=== PATIENT | male | born 1950 | race African-American/Black ===

== ENCOUNTER 2024-01-07 19:10 | Inpatient (IN) ==
[2024-01-07 20:02] LABS: Basophils # (auto) 0.01 K/uL (0.00-0.20); Basophils % (auto) 0.3 %; Eosinophils # (auto) 0.08 K/uL (0.00-0.50); Eosinophils % (auto) 2.5 %; Hematocrit (blood only) 37.2 % (42.0-52.0); Hemoglobin 11.7 g/dl (14.0-18.0); Immature Granulocytes # (auto) 0.01 K/uL (0.01-0.20); Immature Granulocytes % (auto) 0.3 %; Lymphocytes # (auto) 0.78 K/uL (1.20-3.40); Lymphocytes % (auto) 24.3 %; Mean Corpuscular Hemoglobin 26.8 pg (25.0-34.0); Mean Corpuscular Hgb Conc 31.5 g/dL (32.0-36.0); Mean Corpuscular Volume 85.1 fL (80.0-100.0); Mean Platelet Volume 10.8 fL (9.4-12.4); Monocytes # (auto) 0.44 K/uL (0.11-0.59); Monocytes % (auto) 13.7 %; Neutrophils # (auto) 1.89 K/uL (1.40-6.50); Neutrophils % (auto) 58.9 %; Platelet Count 294 K/uL (130-400); RDW Coefficient of Variation 14.9 % (11.5-14.5); RDW Standard Deviation 46.5 fL (36.4-46.3); Red Blood Count 4.37 M/uL (4.70-6.10); White Blood Count 3.21 K/ul (4.8-10.8)
[2024-01-07 20:24] LABS: Partial Thromboplastin Time 28 Seconds (21-31); Prothrombin Time 10.7 Seconds (9.0-12.0)
[2024-01-07 20:49] LABS: Albumin Globulin Ratio 1.6 (0.9-2); Albumin Level 4.7 gm/dl (3.4-5.0); BUN Creatinine Ratio 14.8 (10-20); Bilirubin,Total 0.5 mg/dl (0.2-1.0); Creatinine Clr Calc Pharmacy 51.6 ml/min; Est GFR (African American) 60.4 ml/min; Est GFR (Non-African American) 52.1 ml/min; Globulin 2.9 gm/dl (2.5-4.0); Potassium 3.9 mmol/L (3.5-5.1); Total Protein 7.6 gm/dl (6.0-8.3)
[2024-01-07 21:02] LABS: Troponin I High Sensitivity 57.1 pg/ml (0-20)
[2024-01-07] MEDS: OPTIRAY 320 125ml IV ONE (21:09)
[2024-01-07 21:52] LABS: Adenovirus PCR Not Detected (NotDetected); Bordetella parapertussis PCR Not Detected (NotDetected); Bordetella pertussis PCR Not Detected (NotDetected); Chlamydia pneumoniae PCR Not Detected (NotDetected); Coronavirus 229E PCR Not Detected (NotDetected); Coronavirus CoV-2 (COVID19)PCR Not Detected (NotDetected); Coronavirus HKU1 PCR Not Detected (NotDetected); Coronavirus NL63 PCR Not Detected (NotDetected); Coronavirus OC43PCR Not Detected (NotDetected); Human Metapneumovirus PCR Not Detected (NotDetected); Influenza A PCR Not Detected (NotDetected); Influenza B PCR Not Detected (NotDetected); Mycoplasma pneumoniae PCR Not Detected (NotDetected); Parainfluenza Virus 1 PCR Not Detected (NotDetected); Parainfluenza Virus 2 PCR Not Detected (NotDetected); Parainfluenza Virus 3 PCR Not Detected (NotDetected); Parainfluenza Virus 4 PCR Not Detected (NotDetected); Respiratory Syncytial VirusPCR Not Detected (NotDetected); Rhinovirus/Enterovirus PCR Not Detected (NotDetected)
--- NOTE | 2024-01-07 22:18 | Emergency Department Note ---
Impression & Plan NSTEMI (non-ST elevated myocardial infarction), ASCVD (arteriosclerotic cardiovascular disease), Abnormal EKG ED Provider Note NAME: SIMA [id number] CASSIA AGE: 73 SEX: M : 1950 ARRIVES VIA: Ambulance INFORMANT: Patient, ED PROVIDER(S): Kayleigh Tabor MD CHIEF COMPLAINT: Chest pain HPI: This is a 73-year-old male presenting for chest pain. Patient notes that he has left/central chest pain that started around 3 PM today. He feels like a pressure sensation in his chest. He reports no nausea or vomiting with this. He is never had this pain before. He notes pain was resolved with 2 nitro and 4 aspirin. He notes that he still has pain at this time however. He notes no shortness of breath, fevers, nausea, vomiting or diarrhea. ROS: See above HPI for pertinent positives & negatives. A total of 10 systems reviewed and were otherwise negative. PAST MEDICAL HISTORY: See Below PAST SURGICAL HISTORY: See Below FAMILY HISTORY: See Below SOCIAL HISTORY: See Below HOME MEDICATIONS: See Below ALLERGIES: See Below VITALS: See Below PHYSICAL EXAMINATION: General: resting comfortably in no acute distress Head: Normocephalic and atraumatic Eyes: Normal inspection, extraocular muscles intact Ear, nose, throat: Normal external exam Neck: Normal range of motion Respiratory: lungs clear to auscultation bilaterally Cardiovascular: Regular rate/rhythm, no murmur GI: soft, nontender, no guarding or rebound Extremities: nontender, moves all extremities Neuro: The patient awake and alert, appropriately conversive, no focal deficits, symmetric faces Skin: Warm, dry, and intact MEDICAL DECISION MAKING: This is a 73-year-old male presenting for chest pain concern for. ACS versus PE. PE is less likely based on patient's current vital signs no hypoxia or tachycardia. Otherwise low concern for dissection clinically. -ECG independently interpreted by me with normal sinus rhythm, rate of 84, normal axis, significant DC prolongation, first-degree AV block, right bundle branch block, normal QTc, no ST segment elevations consistent with STEMI criteria -Chest Xray independently interpreted by me showing no pneumothorax, focal opacity, or pleural effusions. -Based on nursing triage note, there was concern for hypoxia upon EMS arrival. Will do CTA to rule out other sources of chest pain suggest PE however less likely currently at this time as patient is on room air -CT is ultimately unrevealing of pulmonary embolism or dissection. Does have coronary artery calcification. -Patient troponin is elevated at 57+ today. This concerning for cardiac etiology. Will admit for further workup at this time. Discussed with Dr. Quispe, hospitalist service. Differential diagnosis: ACS, PE, pericardial effusion, dissection ER treatment provided: See below Diagnostics interpreted by me: ECG: See above Cardiac Monitoring: An order was placed for continuous cardiac monitoring. The monitor shows a rate of 72 with sinus rhythm. Laboratory studies: As stated above and show below. Imaging studies: See below. Past Med/Surg History Problem List (Updated 01/08/24 @ 12:45 by Kayleigh Tabor MD) Mobitz (type) I (Wenckebach's) atrioventricular block Abnormal EKG (Acute) Dyslipidemia, goal LDL below 70 HTN, goal below 130/80 ASCVD (arteriosclerotic cardiovascular disease) (Acute) Left chest pressure NSTEMI (non-ST elevated myocardial infarction) (Acute) Medical History Diabetes mellitus, type 2 Social History Smoking Status: Never smoker Do You Dip or Chew Tobacco: No; Hx Alcohol Use: No Hx Substance Use: No Preferred Language: Senegalese Communication Ability: Effective Station Usher Required: No Beliefs That Will Affect Care: None Current Living Situation: Other Current Living Situation Comment: [facility] Other Information That Helps Us Care for You: No Feels Safe at Home: Yes Safety Concerns: Feels Safe At This Time Assistive Devices: Glasses Allergies Allergies Allergy/AdvReac Type Severity Reaction Status Date / Time metoprolol [From Lopressor] AdvReac Intermediate 2 AVB Verified 01/08/24 06:37 SKIP Inhibitors AdvReac Unknown Verified 01/07/24 23:04 Home Meds Home Medications Medication Instructions Recorded Confirmed acetaminophen 500 mg tablet 1,000 mg PO BID PRN Pain 01/07/24 01/07/24 (Tylenol Extra Strength) albuterol sulfate 90 mcg/actuation 2 puff inhalation QID PRN 01/07/24 01/07/24 aerosol inhaler Shortness Of Breath amlodipine 10 mg tablet 10 mg PO DAILY 01/07/24 01/07/24 ammonium lactate 12 % lotion 1 applic topical DAILY 01/07/24 01/07/24 aspirin 81 mg tablet,delayed 81 mg PO DAILY 01/07/24 01/07/24 release atorvastatin 80 mg tablet 80 mg PO HS 01/07/24 01/07/24 chlorthalidone 25 mg tablet 25 mg PO DAILY 01/07/24 01/07/24 cyanocobalamin (vitamin B-12) 1,000 mcg IM .MONTH 01/07/24 01/07/24 1,000 mcg/mL injection solution docusate sodium 100 mg capsule 100 mg PO BID 01/07/24 01/07/24 duloxetine 60 mg capsule,delayed 60 mg PO HS 01/07/24 01/07/24 release hydroxychloroquine 200 mg tablet 200 mg PO BID 01/07/24 01/07/24 (Plaquenil) isosorbide dinitrate 30 mg tablet 30 mg PO BID 01/07/24 01/07/24 metformin 500 mg tablet 500 mg PO BID 01/07/24 01/07/24 omeprazole 20 mg capsule,delayed 20 mg PO DAILY 01/07/24 01/07/24 release tamsulosin 0.4 mg capsule 0.4 mg PO HS 01/07/24 01/07/24 Results & Data (ED) Vital Signs Vital Signs - 24 hr 01/07/24 19:13 01/07/24 19:13 01/07/24 19:13 Temperature 36.7 C Temperature Source Oral Pulse Rate 84 Pulse Rate from SpO2 Sensor Respiratory Rate 18 18 Respiratory Effort / Characteristics Non-Labored Respiratory Depth Normal Normal Blood Pressure 133/80 Blood Pressure Mean 97 Pulse Oximetry 97 99 99 Oxygen Delivery Method Room Air Room Air Room Air Oxygen Flow Rate 0 Sepsis Recent Fever Within 48 Hours No Sepsis New/Unexplained Change in Mental Status No Sepsis Action Taken by Nursing No Action Required 01/07/24 19:16 01/07/24 19:18 01/07/24 19:19 Temperature Temperature Source Pulse Rate 84 83 Pulse Rate from SpO2 Sensor 84 Respiratory Rate 17 Respiratory Effort / Characteristics Respiratory Depth Blood Pressure 133/80 Blood Pressure Mean 96 Pulse Oximetry 97 Oxygen Delivery Method Oxygen Flow Rate Sepsis Recent Fever Within 48 Hours Sepsis New/Unexplained Change in Mental Status Sepsis Action Taken by Nursing 01/07/24 19:27 01/07/24 19:30 01/07/24 19:30 Temperature Temperature Source Pulse Rate 82 Pulse Rate from SpO2 Sensor 83 Respiratory Rate 15 Respiratory Effort / Characteristics Respiratory Depth Blood Pressure 135/78 135/78 Blood Pressure Mean 101 101 Pulse Oximetry 97 Oxygen Delivery Method Oxygen Flow Rate Sepsis Recent Fever Within 48 Hours Sepsis New/Unexplained Change in Mental Status Sepsis Action Taken by Nursing 01/07/24 19:31 01/07/24 19:48 01/07/24 20:06 Temperature Temperature Source Pulse Rate 92 H 82 Pulse Rate from SpO2 Sensor 91 H 82 Respiratory Rate 20 14 Respiratory Effort / Characteristics Respiratory Depth Blood Pressure Blood Pressure Mean Pulse Oximetry 99 94 97 Oxygen Delivery Method Room Air Room Air Room Air Oxygen Flow Rate Sepsis Recent Fever Within 48 Hours Sepsis New/Unexplained Change in Mental Status Sepsis Action Taken by Nursing 01/07/24 20:27 01/07/24 20:30 01/07/24 21:26 Temperature Temperature Source Pulse Rate 79 Pulse Rate from SpO2 Sensor 80 Respiratory Rate 17 Respiratory Effort / Characteristics Respiratory Depth Blood Pressure 137/81 156/74 H Blood Pressure Mean 104 101 Pulse Oximetry 97 Oxygen Delivery Method Room Air Oxygen Flow Rate Sepsis Recent Fever Within 48 Hours Sepsis New/Unexplained Change in Mental Status Sepsis Action Taken by Nursing 01/07/24 21:30 01/07/24 21:30 01/07/24 21:30 Temperature Temperature Source Pulse Rate Pulse Rate from SpO2 Sensor Respiratory Rate Respiratory Effort / Characteristics Respiratory Depth Blood Pressure 159/79 H 159/79 H 159/79 H Blood Pressure Mean 101 101 101 Pulse Oximetry Oxygen Delivery Method Oxygen Flow Rate Sepsis Recent Fever Within 48 Hours Sepsis New/Unexplained Change in Mental Status Sepsis Action Taken by Nursing 01/07/24 21:30 01/07/24 21:30 01/07/24 21:45 Temperature Temperature Source Pulse Rate 78 79 Pulse Rate from SpO2 Sensor 78 79 Respiratory Rate 15 17 Respiratory Effort / Characteristics Respiratory Depth Blood Pressure 159/79 H Blood Pressure Mean 101 Pulse Oximetry 98 98 Oxygen Delivery Method Room Air Oxygen Flow Rate Sepsis Recent Fever Within 48 Hours Sepsis New/Unexplained Change in Mental Status Sepsis Action Taken by Nursing 01/07/24 22:00 01/07/24 22:30 01/07/24 22:30 Temperature Temperature Source Pulse Rate Pulse Rate from SpO2 Sensor Respiratory Rate Respiratory Effort / Characteristics Respiratory Depth Blood Pressure 157/76 H 150/75 H 150/75 H Blood Pressure Mean 92 113 113 Pulse Oximetry Oxygen Delivery Method Oxygen Flow Rate Sepsis Recent Fever Within 48 Hours Sepsis New/Unexplained Change in Mental Status Sepsis Action Taken by Nursing 01/07/24 22:30 Temperature Temperature Source Pulse Rate 77 Pulse Rate from SpO2 Sensor 77 Respiratory Rate 14 Respiratory Effort / Characteristics Respiratory Depth Blood Pressure Blood Pressure Mean Pulse Oximetry 96 Oxygen Delivery Method Oxygen Flow Rate Sepsis Recent Fever Within 48 Hours Sepsis New/Unexplained Change in Mental Status Sepsis Action Taken by Nursing Laboratory Data 01/08/24 05:25 01/08/24 05:25 Lab Results 01/07/24 01/07/24 Range/Units 19:54 20:40 WBC 3.21 L (4.8-10.8) K/ul RBC 4.37 L (4.70-6.10) M/uL Hgb 11.7 L (14.0-18.0) g/dl Hct 37.2 L (42.0-52.0) % MCV 85.1 (80.0-100.0) fL MCH 26.8 (25.0-34.0) pg MCHC 31.5 L (32.0-36.0) g/dL RDW Std Deviation 46.5 H (36.4-46.3) fL RDW Coeff of Cecilio 14.9 H (11.5-14.5) % Plt Count 294 (130-400) K/uL MPV 10.8 (9.4-12.4) fL Immature Gran % (Auto) 0.3 % Neut % (Auto) 58.9 % Lymph % (Auto) 24.3 % [place] % (Auto) 13.7 % Eos % (Auto) 2.5 % Baso % (Auto) 0.3 % Neut # (Auto) 1.89 (1.40-6.50) K/uL Lymph # (Auto) 0.78 L (1.20-3.40) K/uL [place] # (Auto) 0.44 (0.11-0.59) K/uL Eos # (Auto) 0.08 (0.00-0.50) K/uL Baso # (Auto) 0.01 (0.00-0.20) K/uL Immature Gran # (Auto) 0.01 (0.01-0.20) K/uL PT 10.7 (9.0-12.0) Seconds INR 1.0 (0.9-1.1) APTT 28 (21-31) Seconds PTT Ratio 1.0 Sodium 134 L (136-145) mmol/L Potassium 3.9 (3.5-5.1) mmol/L Chloride 98 (98-107) mmol/L Carbon Dioxide 28 (21-32) mmol/L Anion Gap 8 (3-11) BUN 20 (6-23) mg/dl Creatinine 1.35 (0.6-1.4) mg/dl Est Cr Clr Drug Dosing 51.6 ml/min Est GFR ( Amer) 60.4 ml/min Est GFR (Non-Af Amer) 52.1 ml/min BUN/Creatinine Ratio 14.8 (10-20) Glucose 81 (70-99(Fasting)) mg/dl Calcium 10.0 (8.6-10.3) mg/dl Total Bilirubin 0.5 (0.2-1.0) mg/dl AST 30 (13-39) U/L ALT 19 (7-52) U/L Alkaline Phosphatase 55 (34-104) U/L Troponin I High Sens 57.1 H* (0-20) pg/ml Total Protein 7.6 (6.0-8.3) gm/dl Albumin 4.7 (3.4-5.0) gm/dl Globulin 2.9 (2.5-4.0) gm/dl Albumin/Globulin Ratio 1.6 (0.9-2) Lipase 102 H (11-82) U/L Adenovirus (PCR) Not Detected (NotDetected) B. pertussis DNA (PCR) Not Detected (NotDetected) B.parapertussis DNA PCR Not Detected (NotDetected) C. pneumoniae DNA (PCR) Not Detected (NotDetected) Coronavirus OC43 (PCR) Not Detected (NotDetected) Coronavirus HKU1 (PCR) Not Detected (NotDetected) Coronavirus 229E (PCR) Not Detected (NotDetected) SARS-CoV-2 (PCR) Not Detected (NotDetected) Coronavirus NL63 (PCR) Not Detected (NotDetected) Human Metapneumovir PCR Not Detected (NotDetected) Influenza Type A (PCR) Not Detected (NotDetected) Influenza Type B (PCR) Not Detected (NotDetected) M. pneumoniae (PCR) Not Detected (NotDetected) Parainfluenza 1 (PCR) Not Detected (NotDetected) Parainfluenza 2 (PCR) Not Detected (NotDetected) Parainfluenza 3 (PCR) Not Detected (NotDetected) Parainfluenza 4 (PCR) Not Detected (NotDetected) RSV (PCR) Not Detected (NotDetected) Entero/Rhino (PCR) Not Detected (NotDetected) Administered Medications Amlodipine Besylate (Amlodipine Besylate 5 Mg Tab) 10 mg PO DAILY [facility] Stop: 02/07/24 08:59 Last Admin: 01/08/24 08:26 Dose: 10 mg Documented By: LESTER Aspirin (Aspirin 81 Mg Ectab) 81 mg PO DAILY [facility] Stop: 02/07/24 08:59 Last Admin: 01/08/24 08:27 Dose: 81 mg Documented By: LESTER Docusate Sodium (Docusate Sodium 100 Mg Cap) 100 mg PO BID [facility] Stop: 02/07/24 08:59 Last Admin: 01/08/24 08:27 Dose: 100 mg Documented By: LESTER Duloxetine HCl (Duloxetine Hcl 60 Mg Cap) 60 mg PO QAM [facility] Stop: 02/07/24 08:59 Last Admin: 01/08/24 08:28 Dose: 60 mg Documented By: LESTER Hydroxychloroquine Sulfate (Hydroxychloroquine Sulfate 200 Mg Tab) 200 mg PO BID [facility] Stop: 02/07/24 08:59 Last Admin: 01/08/24 08:29 Dose: 200 mg Documented By: LESTER Isosorbide Dinitrate (Isosorbide Dinitrate 20 Mg Tab) 30 mg PO BID@0700,1200 [facility] Stop: 02/07/24 06:59 Last Admin: 01/08/24 08:29 Dose: 30 mg Documented By: LESTER Pantoprazole Sodium (Pantoprazole 40 Mg Tab) 40 mg PO DAILY [facility] Stop: 02/07/24 08:59 Last Admin: 01/08/24 08:30 Dose: 40 mg Documented By: LESTER Discontinued Medications Clopidogrel Bisulfate (Clopidogrel Bisulfate 300 Mg Tab) Confirm Administered Dose 600 mg .ROUTE .STK-MED ONE Stop: 01/08/24 11:43 Last Admin: 01/08/24 12:28 Dose: Not Given Documented By: LESTER Fentanyl Citrate (Fentanyl Citrate Pf 100 Mcg/2 Ml Vial) Confirm Administered Dose 100 mcg .ROUTE .STK-MED ONE Stop: 01/08/24 09:45 Last Increment: 01/08/24 11:51 Dose: 12.5 mcg Documented By: YOHANNES Heparin Sodium (Porcine) (Heparin (Porcine) 1000 Unit/Ml 10 Ml (Solar Manager Use Only)) Confirm Administered Dose 10,000 units .ROUTE .STK-MED ONE Stop: 01/08/24 09:44 Last Admin: 01/08/24 11:47 Dose: 7,500 units Documented By: YOHANNES Heparin Sodium/Dextrose (Heparin Iv Adult Wt-Based Standard *No* Initial Bolus Protocol) 1 each IV ONE STA; Protocol Stop: 01/07/24 22:50 Last Admin: 01/08/24 00:38 Dose: 1 each Documented By: JERSON Heparin Sodium/Sodium Chloride (Heparin In Nss Infusion 1000 Unit/500 Ml (2 U/Ml) Bag) Confirm Administered Dose 3,000 units IV .STK-MED ONE Stop: 01/08/24 09:45 Last Admin: 01/08/24 10:48 Dose: 3,000 units Documented By: FIOR Lactated Ringer's (Lr) 1,000 mls @ 75 mls/hr IV .[id number] ONE Stop: 01/08/24 11:44 Last Infusion: 01/08/24 09:51 Dose: 0 mls/hr Documented By: Admin: 01/07/24 22:52 Dose: 75 mls/hr Documented By: SATYA Heparin Sodium/Dextrose (Heparin Sodium/Dextrose) 25,000 units in 500 mls @ 25 mls/hr IV .Q20H KATHYA; Protocol Stop: 02/06/24 23:14 Last Titration: 01/08/24 12:30 Dose: Infused Documented By: LESTER Co-signed By: ROCK Titration: 01/08/24 09:50 Dose: 0 units/hr, 0 mls/hr Documented By: LESTER Co-signed By: ROCK Titration: 01/08/24 07:06 Dose: 1,250 units/hr, 25 mls/hr Documented By: ROCK Co-signed By: SELVIN Titration: 01/08/24 06:34 Dose: 1,250 units/hr, 25 mls/hr Documented By: SELVIN Co-signed By: ELLIS Admin: 01/08/24 00:37 Dose: 1,300 units/hr, 26 mls/hr Documented By: PAH Co-signed By: CHRIS Magnesium Sulfate/Dextrose (Magnesium Sulfate / D5w) 1 gm in 100 mls @ 50 mls/hr IV Q2H KATH[facility] Stop: 01/08/24 04:14 Last Infusion: 01/08/24 04:12 Dose: Infused Documented By: Admin: 01/08/24 02:12 Dose: 50 mls/hr Documented By: Infusion: 01/08/24 02:12 Dose: Infused Documented By: Admin: 01/08/24 00:54 Dose: 50 mls/hr Documented By: SELVIN Insulin Aspart (Insulin Aspart Per Unit Charge) 0 units SC Q6 KATH[facility] Stop: 02/07/24 00:00 Last Admin: 01/08/24 06:29 Dose: Not Given Documented By: SELVIN Co-signed By: ELLIS Admin: 01/08/24 00:41 Dose: Not Given Documented By: SELVIN Co-signed By: ELLIS Ioversol (Optiray 320 125ml) 118 ml IV ONCE ONE Stop: 01/07/24 21:10 Last Admin: 01/07/24 21:09 Dose: 118 ml Documented By: CINDY Ioversol (Optiray 350) Confirm Administered Dose 1 ml .ROUTE .STK-MED ONE Stop: 01/08/24 09:45 Last Admin: 01/08/24 11:51 Dose: 140 ml Documented By: FIOR Metoprolol Succinate (Metoprolol Succ 25mg Ext Rel Tab) 25 mg PO QAM KATH[facility] Stop: 02/07/24 00:09 Last Admin: 01/08/24 00:54 Dose: 25 mg Documented By: SELIVN Midazolam HCl (Midazolam Hcl 1 Mg/Ml 2ml Vial) Confirm Administered Dose 2 mg .ROUTE .STK-MED ONE Stop: 01/08/24 09:44 Last Increment: 01/08/24 11:48 Dose: 1 mg Documented By: YOHANNES Miscellaneous Information (Patient's Allergy Info Needs Entered) 1 each N/A NOW STA Stop: 01/07/24 22:28 Last Admin: 01/07/24 23:03 Dose: 1 each Documented By: SATYA Nicardipine HCl (Nicardipine Hcl Inj 2.5 Mg/Ml 10 Ml Amp) Confirm Administered Dose 25 mg .ROUTE .STK-MED ONE Stop: 01/08/24 09:45 Last Admin: 01/08/24 10:48 Dose: 25 mg Documented By: FIOR Nitroglycerin (Nitroglycerin Sl 0.4 Mg/Tab Tab) 0.4 mg SL NOW STA Stop: 01/07/24 22:49 Last Admin: 01/08/24 00:09 Dose: 0.4 mg Documented By: SELVIN Nitroglycerin/Dextrose (Nitroglycerin/D5w 100mcg/Ml 20ml Syr) Confirm Administered Dose 2,000 mcg .ROUTE .STK-MED ONE Stop: 01/08/24 09:45 Last Admin: 01/08/24 11:52 Dose: 2,000 mcg Documented By: ANISH Imaging Data Radiologist's Impression: Chest X-Ray 01/07/24 19:19 XR chest 1V portable HISTORY: Chest pain, nonspecific COMPARISON: None. FINDINGS: The lungs are clear. Cardiac silhouette is normal in size. No pleural effusions. No pneumothorax. IMPRESSION: No acute process. ACT 112: Negative or not required by law. Electronically signed by: Osmar Hooks M.D. 01/08/2024 7:32 AM Discharge Plan Visit Data Chief Complaint: Cardiac Assessment Stated Complaint: EKG Changes, Chest Pain, SOB ED Provider: Kayleigh Tabor Discharge Problem: NSTEMI (non-ST elevated myocardial infarction), ASCVD (arteriosclerotic cardiovascular disease), Abnormal EKG Patient Disposition: Admitted As Inpatient Discharge Instructions Interventions: ED Discharge Assessment Last Done: 01/07/24 23:20
--- NOTE | 2024-01-07 22:49 | History & Physical Report ---
Date of Service January 07, 2024 Assessment & Plan (1) NSTEMI (non-ST elevated myocardial infarction): Plan: NSTEMI History CAD status post stent hx PVD as per records hypertension, slightly elevated hyperlipidemia, on statin Rx COPD, at baseline DM2 on oral medications, unknown control SLE on hydroxychloroquine Rx chronic anemia, hemoglobin close to baseline past tobacco abuse Admit to PCU Continue patient's home aspirin, statin, nitro Rx initiate low-dose beta-barb IV heparin TTE, cardiology consult re: NSTEMI N.p.o. after midnight in anticipation of ischemic workup ISS BG goal 1 10-1 40 Check lipid profile and hemoglobin A1c DVT prophylaxis. Heparin Full code Text document was generated using [employer] voice recognition software. It may contain grammatical or spelling errors. Kindly contact undersigned for clarification of any documentation item in question. ADDENDUM: (01/07, 230 AM) Notified by LOCATE TECHNICIAN of patient bradycardia, heart rate 50s. Second-degree AV block on the monitor. Patient asymptomatic as per RN. Hold beta-barb for now. History of Present Illness Chief Complaint: Chest pain Primary Care Provider: ABHIJIT Silva History obtained from patient and records. Medical history significant for CAD status post stent, PVD, hypertension, h yperlipidemia, COPD, DM2 on oral medications, SLE, chronic anemia (baseline hemoglobin of 12), BPH, latent TB as per records, past tobacco abuse. Patient experienced pressure-like left-sided chest pain this afternoon while lying down in bed. Some shortness of breath. No cough symptoms. Similar to heart attack about 15 years ago which led to stent placement at the hospital in [place], [place]. Patient compliant with home medications. Discomfort relieved by aspirin and nitroglycerin administration at correctional facility. 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 Allergies Allergy/AdvReac Type Severity Reaction Status Date / Time metoprolol [From Lopressor] AdvReac Intermediate 2 AVB Verified 01/08/24 06:37 SKIP Inhibitors AdvReac Unknown Verified 01/07/24 23:04 Home Medications Medication Instructions Recorded Confirmed Type acetaminophen 500 mg tablet 1,000 mg PO BID PRN Pain 01/07/24 01/07/24 History (Tylenol Extra Strength) albuterol sulfate 90 mcg/actuation 2 puff inhalation QID PRN 01/07/24 01/07/24 History aerosol inhaler Shortness Of Breath amlodipine 10 mg tablet 10 mg PO DAILY 01/07/24 01/07/24 History ammonium lactate 12 % lotion 1 applic topical DAILY 01/07/24 01/07/24 History aspirin 81 mg tablet,delayed 81 mg PO DAILY 01/07/24 01/07/24 History release atorvastatin 80 mg tablet 80 mg PO HS 01/07/24 01/07/24 History chlorthalidone 25 mg tablet 25 mg PO DAILY 01/07/24 01/07/24 History cyanocobalamin (vitamin B-12) 1,000 mcg IM .MONTH 01/07/24 01/07/24 History 1,000 mcg/mL injection solution docusate sodium 100 mg capsule 100 mg PO BID 01/07/24 01/07/24 History duloxetine 60 mg capsule,delayed 60 mg PO HS 01/07/24 01/07/24 History release hydroxychloroquine 200 mg tablet 200 mg PO BID 01/07/24 01/07/24 History (Plaquenil) isosorbide dinitrate 30 mg tablet 30 mg PO BID 01/07/24 01/07/24 History metformin 500 mg tablet 500 mg PO BID 01/07/24 01/07/24 History omeprazole 20 mg capsule,delayed 20 mg PO DAILY 01/07/24 01/07/24 History release tamsulosin 0.4 mg capsule 0.4 mg PO HS 01/07/24 01/07/24 History Past Med/Surg History Problem List Mobitz (type) I (Wenckebach's) atrioventricular block Abnormal EKG Dyslipidemia, goal LDL below 70 HTN, goal below 130/80 ASCVD (arteriosclerotic cardiovascular disease) Left chest pressure NSTEMI (non-ST elevated myocardial infarction) Medical History Diabetes mellitus, type 2 Social History Smoking Status: Never smoker Do You Dip or Chew Tobacco: No; Hx Alcohol Use: No Hx Substance Use: No Preferred Language: German Communication Ability: Effective Chassis Driver Required: No Beliefs That Will Affect Care: None Current Living Situation: Other Current Living Situation Comment: [facility]IL[facility] Other Information That Helps Us Care for You: No Feels Safe at Home: Yes Safety Concerns: Feels Safe At This Time Assistive Devices: Glasses Review of Systems Review of Systems: As per HPI, all other systems reviewed and negative Physical Exam Physical Exam: GENERAL: Comfortable, pleasant, no respiratory distress SKIN: Normal color, warm HEENT: [place] palpebral conjunctivae, no ptosis, dry buccal mucosa NECK : Supple, no tenderness CHEST : CTA, no tenderness HEART : RRR, systolic murmur ABDOMEN: Some distention, nontender EXTREMITIES : No LE swelling/tenderness, no other conspicuous deformities noted NEUROLOGIC : Coherent, no facial asymmetry, no other gross focality Results & Data Results & Data Vital Signs (Past 12 Hours) Vital Signs Temp Pulse Resp BP Pulse Ox O2 Del Method O2 Flow Rate 01/07/24 22:30 77 14 96 01/07/24 22:30 150/75 H 01/07/24 22:30 150/75 H 01/07/24 22:00 157/76 H 01/07/24 21:45 79 17 98 Room Air 01/07/24 21:30 78 15 98 01/07/24 21:30 159/79 H 01/07/24 21:30 159/79 H 01/07/24 21:30 159/79 H 01/07/24 21:30 159/79 H 01/07/24 21:26 156/74 H 01/07/24 20:30 137/81 01/07/24 20:27 79 17 97 Room Air 01/07/24 20:06 82 14 97 Room Air 01/07/24 19:48 92 H 20 94 Room Air 01/07/24 19:31 99 Room Air 01/07/24 19:30 135/78 01/07/24 19:30 135/78 01/07/24 19:27 82 15 97 01/07/24 19:19 133/80 01/07/24 19:18 83 17 97 01/07/24 19:16 84 01/07/24 19:13 18 99 Room Air 01/07/24 19:13 99 Room Air 0 01/07/24 19:13 36.7 C 84 18 133/80 97 Room Air Laboratory Results Laboratory Results WBC 3.21 K/ul (4.8-10.8) L 01/07/24 19:54 RBC 4.37 M/uL (4.70-6.10) L 01/07/24 19:54 Hgb 11.7 g/dl (14.0-18.0) L 01/07/24 19:54 Hct 37.2 % (42.0-52.0) L 01/07/24 19:54 MCV 85.1 fL (80.0-100.0) 01/07/24 19:54 MCH 26.8 pg (25.0-34.0) 01/07/24 19:54 MCHC 31.5 g/dL (32.0-36.0) L 01/07/24 19:54 RDW Std Deviation 46.5 fL (36.4-46.3) H 01/07/24 19:54 RDW Coeff of Cecilio 14.9 % (11.5-14.5) H 01/07/24 19:54 Plt Count 294 K/uL (130-400) 01/07/24 19:54 MPV 10.8 fL (9.4-12.4) 01/07/24 19:54 Immature Gran % (Auto) 0.3 % 01/07/24 19:54 Neut % (Auto) 58.9 % 01/07/24 19:54 Lymph % (Auto) 24.3 % 01/07/24 19:54 [place] % (Auto) 13.7 % 01/07/24 19:54 Eos % (Auto) 2.5 % 01/07/24 19:54 Baso % (Auto) 0.3 % 01/07/24 19:54 Neut # (Auto) 1.89 K/uL (1.40-6.50) 01/07/24 19:54 Lymph # (Auto) 0.78 K/uL (1.20-3.40) L 01/07/24 19:54 [place] # (Auto) 0.44 K/uL (0.11-0.59) 01/07/24 19:54 Eos # (Auto) 0.08 K/uL (0.00-0.50) 01/07/24 19:54 Baso # (Auto) 0.01 K/uL (0.00-0.20) 01/07/24 19:54 Immature Gran # (Auto) 0.01 K/uL (0.01-0.20) 01/07/24 19:54 PT 10.7 Seconds (9.0-12.0) 01/07/24 19:54 INR 1.0 (0.9-1.1) 01/07/24 19:54 APTT 28 Seconds (21-31) 01/07/24 19:54 PTT Ratio 1.0 01/07/24 19:54 Sodium 134 mmol/L (136-145) L 01/07/24 19:54 Potassium 3.9 mmol/L (3.5-5.1) 01/07/24 19:54 Chloride 98 mmol/L (98-107) 01/07/24 19:54 Carbon Dioxide 28 mmol/L (21-32) 01/07/24 19:54 Anion Gap 8 (3-11) 01/07/24 19:54 BUN 20 mg/dl (6-23) 01/07/24 19:54 Creatinine 1.35 mg/dl (0.6-1.4) 01/07/24 19:54 Est Cr Clr Drug Dosing 51.6 ml/min 01/07/24 19:54 Est GFR ( Amer) 60.4 ml/min 01/07/24 19:54 Est GFR (Non-Af Amer) 52.1 ml/min 01/07/24 19:54 BUN/Creatinine Ratio 14.8 (10-20) 01/07/24 19:54 Glucose 81 mg/dl (70-99(Fasting)) 01/07/24 19:54 Calcium 10.0 mg/dl (8.6-10.3) 01/07/24 19:54 Total Bilirubin 0.5 mg/dl (0.2-1.0) 01/07/24 19:54 AST 30 U/L (13-39) 01/07/24 19:54 ALT 19 U/L (7-52) 01/07/24 19:54 Alkaline Phosphatase 55 U/L (34-104) 01/07/24 19:54 Troponin I High Sens 57.1 pg/ml (0-20) H* 01/07/24 19:54 Total Protein 7.6 gm/dl (6.0-8.3) 01/07/24 19:54 Albumin 4.7 gm/dl (3.4-5.0) 01/07/24 19:54 Globulin 2.9 gm/dl (2.5-4.0) 01/07/24 19:54 Albumin/Globulin Ratio 1.6 (0.9-2) 01/07/24 19:54 Lipase 102 U/L (11-82) H 01/07/24 19:54 Adenovirus (PCR) Not Detected (NotDetected) 01/07/24 20:40 B. pertussis DNA (PCR) Not Detected (NotDetected) 01/07/24 20:40 B.parapertussis DNA PCR Not Detected (NotDetected) 01/07/24 20:40 C. pneumoniae DNA (PCR) Not Detected (NotDetected) 01/07/24 20:40 Coronavirus OC43 (PCR) Not Detected (NotDetected) 01/07/24 20:40 Coronavirus HKU1 (PCR) Not Detected (NotDetected) 01/07/24 20:40 Coronavirus 229E (PCR) Not Detected (NotDetected) 01/07/24 20:40 SARS-CoV-2 (PCR) Not Detected (NotDetected) 01/07/24 20:40 Coronavirus NL63 (PCR) Not Detected (NotDetected) 01/07/24 20:40 Human Metapneumovir PCR Not Detected (NotDetected) 01/07/24 20:40 Influenza Type A (PCR) Not Detected (NotDetected) 01/07/24 20:40 Influenza Type B (PCR) Not Detected (NotDetected) 01/07/24 20:40 M. pneumoniae (PCR) Not Detected (NotDetected) 01/07/24 20:40 Parainfluenza 1 (PCR) Not Detected (NotDetected) 01/07/24 20:40 Parainfluenza 2 (PCR) Not Detected (NotDetected) 01/07/24 20:40 Parainfluenza 3 (PCR) Not Detected (NotDetected) 01/07/24 20:40 Parainfluenza 4 (PCR) Not Detected (NotDetected) 01/07/24 20:40 RSV (PCR) Not Detected (NotDetected) 01/07/24 20:40 Entero/Rhino (PCR) Not Detected (NotDetected) 01/07/24 20:[address] chest: 1. No pulmonary embolus. 2. Emphysema is noted. Emphysema is an independent risk factor for lung cancer. Recommend evaluation for low dose lung cancer screening protocol. EKG as per my interpretation : Rate 85, NSR, normal axis, RBBB, no ischemia
[2024-01-07] MEDS: LACTATED RINGER'S 1,000 ML IV ONE (22:52)
[2024-01-07] MEDS ORDERED: CARBOHYDRATES FOR HYPOGLYCEMIA PO PRN (22:55)
[2024-01-07] MEDS ORDERED: GLUCOSE 40% GEL 15 GM TUBE PO PRN (22:55)
[2024-01-07] MEDS ORDERED: oxyCODONE HCL IR 5 MG TAB (IMMEDIATE RELEASE) PO PRN (22:55)
[2024-01-07] MEDS ORDERED: NITROGLYCERIN SL 0.4 MG/TAB TAB SL PRN (22:55)
[2024-01-07] MEDS ORDERED: DEXTROSE 50% 50 ML SYRINGE IV PRN (22:55)
[2024-01-07] MEDS ORDERED: PROMETHAZINE 6.25 MG/50.25 ML BAG IV PRN (22:55)
[2024-01-07] MEDS ORDERED: GLUCOSE 10 TAB/TUBE PO PRN (22:55)
[2024-01-07] MEDS ORDERED: MoRPHine SULFATE 4 MG/ML 1 ML CARP\\VIAL IV PRN (22:55)
[2024-01-07] MEDS ORDERED: GLUCAGON FOR INJ 1 MG VIAL SQ PRN (22:55)
[2024-01-07] MEDS ORDERED: LORazepam 0.5 MG TAB PO PRN (22:55)
[2024-01-07] MEDS: Patient's ALLERGY Info needs ENTERED STA (23:03)
--- NOTE | 2024-01-07 23:17 | CT Scan Report ---
Exam(s): CTA CHEST IV Amt: 118 cc opti 320 EXAM: CT Angiography Chest With Intravenous Contrast CLINICAL HISTORY: PE. TECHNIQUE: Axial computed tomographic angiography images of the chest with intravenous contrast. MIPS images were created and reviewed. CTDI is 22. 56 mGy and DLP is 768.09 mGy-cm. Automated exposure control was utilized for the study. A dose lowering technique was utilized adhering to the principles of ALARA. MIP reconstructed images were created and reviewed. COMPARISON: No relevant prior studies available. FINDINGS: Pulmonary arteries: Unremarkable. No pulmonary embolism. Aorta: Mild atherosclerosis. No thoracic aortic aneurysm. Lungs: Emphysema is noted. No mass. No consolidation. Pleural space: Unremarkable. No significant effusion. No pneumothorax. Heart: Coronary artery calcifications are present. No cardiomegaly. No significant pericardial effusion. No evidence of RV dysfunction. Bones/joints: There are degenerative changes of the spine. No acute fracture. Soft tissues: Unremarkable. Lymph nodes: Unremarkable. No enlarged lymph nodes. IMPRESSION: 1. No pulmonary embolus. 2. Emphysema is noted. Emphysema is an independent risk factor for lung cancer. Recommend evaluation for low dose lung cancer screening protocol. Electronically signed by: Aleja Bryant MD 01/07/24 23:16 PM
[2024-01-07 23:48] LABS: Magnesium 1.5 mg/dl (1.7-2.4)
[2024-01-08] MEDS ORDERED: PNEUMOCOCCAL VACCINE (PCV20) 20-VAL CONJ-DIP CRM/PF 0.5 ML SYR IM ONE
[2024-01-08 00:03] LABS: Troponin I High Sensitivity 61.9 pg/ml (0-20)
[2024-01-08] MEDS: NITROGLYCERIN SL 0.4 MG/TAB TAB SL STA (00:09)
[2024-01-08] MEDS ORDERED: DULoxetine HCL 60 MG CAP PO SCH (00:10)
[2024-01-08] MEDS: HEPARIN SODIUM/DEXTROSE 25,000 UNITS/500 ML BAG IV SCH (00:37)
[2024-01-08] MEDS: Heparin IV Adult Wt-Based Standard *NO* INITIAL Bolus Protocol IV STA (00:38)
[2024-01-08] MEDS: INSULIN ASPART PER UNIT CHARGE SC SCH ×2 (00:41→12:48)
[2024-01-08] MEDS: MAGNESIUM SULFATE / D5W 1 GM/100 ML BAG IV SCH (00:54)
[2024-01-08] MEDS: METOPROLOL SUCC 25MG EXT REL TAB PO SCH (00:54)
[2024-01-08] MEDS ORDERED: Nursing to Pharmacy Communication SCH (01:00)
[2024-01-08 05:50] LABS: Basophils # (auto) 0.02 K/uL (0.00-0.20); Basophils % (auto) 0.6 %; Eosinophils # (auto) 0.08 K/uL (0.00-0.50); Eosinophils % (auto) 2.6 %; Hematocrit (blood only) 35.6 % (42.0-52.0); Hemoglobin 11.6 g/dl (14.0-18.0); Immature Granulocytes # (auto) 0.01 K/uL (0.01-0.20); Immature Granulocytes % (auto) 0.3 %; Lymphocytes # (auto) 0.84 K/uL (1.20-3.40); Lymphocytes % (auto) 27.2 %; Mean Corpuscular Hgb Conc 32.6 g/dL (32.0-36.0); Mean Corpuscular Volume 82.8 fL (80.0-100.0); Mean Platelet Volume 10.8 fL (9.4-12.4); Monocytes # (auto) 0.44 K/uL (0.11-0.59); Monocytes % (auto) 14.2 %; Neutrophils % (auto) 55.1 %; Platelet Count 288 K/uL (130-400); RDW Coefficient of Variation 15.1 % (11.5-14.5); RDW Standard Deviation 45.8 fL (36.4-46.3); White Blood Count 3.09 K/ul (4.8-10.8)
[2024-01-08 06:08] LABS: BUN Creatinine Ratio 14.3 (10-20); Calcium 9.3 mg/dl (8.6-10.3); Chol HDL Ratio 3.1 (0-5); Creatinine Clr Calc Pharmacy 53.7 ml/min; Est GFR (African American) 65.6 ml/min; Est GFR (Non-African American) 56.6 ml/min; Potassium 3.9 mmol/L (3.5-5.1)
[2024-01-08 06:23] LABS: ANTI-Xa, UFH(UnfractionatedHep 0.72 IU/ml (0.3-0.7)
[2024-01-08 07:09] LABS: Estimated Average Glucose 154 mg/dl
--- NOTE | 2024-01-08 07:34 | XRay Report ---
XR chest 1V portable HISTORY: Chest pain, nonspecific COMPARISON: None. FINDINGS: The lungs are clear. Cardiac silhouette is normal in size. No pleural effusions. No pneumot horax. IMPRESSION: No acute process. ACT 112: Negative or not required by law. Electronically signed by: Osmar Hooks M.D. 01/08/2024 7:32 AM
[2024-01-08 08:07] LABS: Thyroid Stimulating Hormone 2.198 uIu/ml (0.300-4.500)
[2024-01-08] MEDS: amLODIPine BESYLATE 5 MG TAB PO SCH (08:26)
[2024-01-08] MEDS: DOCUSATE SODIUM 100 MG CAP PO SCH (08:27)
[2024-01-08] MEDS: ASPIRIN 81 MG ECTAB PO SCH (08:27)
[2024-01-08] MEDS: DULoxetine HCL 60 MG CAP PO SCH (08:28)
[2024-01-08] MEDS: ISOSORBIDE DINITRATE 20 MG TAB PO SCH (08:29)
[2024-01-08] MEDS: HYDROXYCHLOROQUINE SULFATE 200 MG TAB PO SCH (08:29)
[2024-01-08] MEDS: PANTOprazole 40 MG TAB PO SCH (08:30)
--- NOTE | 2024-01-08 09:10 | Cardiology Consultation ---
Date of Consultation January 08, 2024 Assessment & Plan (1) Left chest pressure: (2) ASCVD (arteriosclerotic cardiovascular disease): (3) HTN, goal below 130/80: (4) Dyslipidemia, goal LDL below 70: (5) Abnormal EKG: (6) Mobitz (type) I (Wenckebach's) atrioventricular block: Plan 73-year-old male patient admitted with left-sided chest pressure after minimal activity, discomfort associated with shortness of breath, symptoms reminiscent of prior IL requiring intervention (PCI) patient with multiple risk factors including hypertension, dyslipidemia, type 2 diabetes mellitus, history of tobacco abuse. EKG revealed sinus with prolonged first-degree AV block, right bundle branch block, anterior T wave abnormality. High-sensitivity troponin elevated at 57.1 -> 61.9 -> 67.0 pg/mL. Resting echocardiography pending. Creatinine 1.26 mg/dL. Recommendations: 1. NPO for cardiac catheterization. Risks, benefits, and alternatives fully explained initially to patient then with assistance of spanish medical interpreter 2. Continue aspirin, high intensity statin therapy, long-acting nitrates, and amlodpine 3. Discontinue metoprolol, voiding AV zuleika blockers for now (Received 25 mg of metoprolol succinate on 01/08/2024 at 00:54) 4. Screen for Lyme. TSH OK. Supervising Physician Co-Signing Physician Notes Patient was seen and personally examined. Full assessment and plan as outlined by advanced provider above. 73-year-old male with known coronary artery disease and multiple cardiovascular risk factors who developed chest pain at rest day of admission. CTA of chest reflective of aortic and coronary calcification EKGs with underlying conduction system disease Echocardiogram with preserved LV systolic function no wall motion Troponins elevated though somewhat flat. Currently asymptomatic Plan as above proceed with diagnostic coronary angiography today. Patient aware of plans History of Present Illness Reason for Consultation: ACS Requesting Physician: Dr. Eckert Attending Physician: Dr. Willie Godoy MD History of Present Illness 73-year-old male patient seen in consultation for possible ACS. Communication difficult, improved somewhat with use of spanish medical interpreter #[id number]. Patient describes nonradiating left-sided chest pressure after minimal activity, associated with shortness of breath, symptoms similar to prior IL requiring intervention in [place], [place] circa 3 years ago. Patient also describes having a heart attack 15 to 20 years ago, without intervention, attributed to nerves. EKG revealed sinus with prolonged first-degree AV block, right bundle branch block, anterior T wave abnormality. High-sensitivity troponin elevated at 57.1 -> 61.9 -> 67.0 pg/mL. Creatinine 1.26 mg/dL. 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 Father was killed in an accident at the age of 75. 1 brother and 4 sisters without cardiac issues. Social History: Reformed smoker having quit 2 years ago after smoking up to 2 packs/day x 54 years. Alcohol: 6 pack/day chronically until 3 years ago at which time he was incarcerated. Illegal/illicit drug use: Cocaine last use about 1 year ago. Patient currently incarcerated at the [facility]. Allergies Allergy/AdvReac Type Severity Reaction Status Date / Time metoprolol [From Lopressor] AdvReac Intermediate 2 AVB Verified 01/08/24 06:37 SKIP Inhibitors AdvReac Unknown Verified 01/07/24 23:04 Home Medications Medication Instructions Recorded Confirmed Type acetaminophen 500 mg tablet 1,000 mg PO BID PRN Pain 01/07/24 01/07/24 History (Tylenol Extra Strength) albuterol sulfate 90 mcg/actuation 2 puff inhalation QID PRN 01/07/24 01/07/24 History aerosol inhaler Shortness Of Breath amlodipine 10 mg tablet 10 mg PO DAILY 01/07/24 01/07/24 History ammonium lactate 12 % lotion 1 applic topical DAILY 01/07/24 01/07/24 History aspirin 81 mg tablet,delayed 81 mg PO DAILY 01/07/24 01/07/24 History release atorvastatin 80 mg tablet 80 mg PO HS 01/07/24 01/07/24 History chlorthalidone 25 mg tablet 25 mg PO DAILY 01/07/24 01/07/24 History cyanocobalamin (vitamin B-12) 1,000 mcg IM .MONTH 01/07/24 01/07/24 History 1,000 mcg/mL injection solution docusate sodium 100 mg capsule 100 mg PO BID 01/07/24 01/07/24 History duloxetine 60 mg capsule,delayed 60 mg PO HS 01/07/24 01/07/24 History release hydroxychloroquine 200 mg tablet 200 mg PO BID 01/07/24 01/07/24 History (Plaquenil) isosorbide dinitrate 30 mg tablet 30 mg PO BID 01/07/24 01/07/24 History metformin 500 mg tablet 500 mg PO BID 01/07/24 01/07/24 History omeprazole 20 mg capsule,delayed 20 mg PO DAILY 01/07/24 01/07/24 History release tamsulosin 0.4 mg capsule 0.4 mg PO HS 01/07/24 01/07/24 History Patient History Medical History Diabetes mellitus, type 2 Social History Smoking Status: Never smoker Do You Dip or Chew Tobacco: No; Hx Alcohol Use: No Hx Substance Use: No Preferred Language: French Communication Ability: Effective Registered Nurse Obstetrics Required: No Beliefs That Will Affect Care: None Current Living Situation: Other Current Living Situation Comment: [facility] Other Information That Helps Us Care for You: No Feels Safe at Home: Yes Safety Concerns: Feels Safe At This Time Assistive Devices: Glasses Review of Systems Review of Systems: Complete Review of Systems: Constitutional: No fevers, chills, or night sweats. HEENT: No amaurosis fugax. Pulmonary: COPD. Cardiac: See above. GI/Abd: No dysphagia. No GERD. No melana or hematochezia. No kidney problems. No liver problems. No history of pancreatic issues. Vascular: No claudication. Hematologic: No coagulation disorder, anemia, or abnormal bleeding. Musculoskeletal: Back pain Skin: Foot rash Neurologic: Bilateral hand and foot neuropathy. No history of CVA. No history of seizure disorder. Male : BPH. Endocrine: T2DM. Complete Review of Systems is as stated above, negative, or noncontributory Physical Exam Physical Exam: General: A&Ox3. NAD. HENT: Normocephalic. Atraumatic. Eyes: PER. Conjunctiva pink, sclera clear. Neck: Transmitted systolic murmur versus carotid bruits. No JVD. No HJR. Heart: RRR. Grade II/ systolic ejection murmur. No diastolic murmur. No rub. No gallop. PMI is nondisplaced. Lungs: Clear to auscultation. Abdomen: +BS. Soft. Nontender. No masses or organomegaly. Extremities: No clubbing, cyanosis, or edema. Limited neurological examination is without focal deficits. Pulses: Posterior tibial=1/4. Results & Data Vital Signs (Past 12 Hours) Vital Signs Temp Pulse Pulse Resp BP BP Pulse Ox 01/08/24 08:07 36.8 C 56 L 17 125/67 95 01/08/24 03:03 36.5 C 63 16 123/65 96 01/07/24 23:59 77 01/07/24 23:55 01/07/24 23:51 36.5 C 75 18 132/73 94 01/07/24 23:40 36.5 C 75 18 132/73 94 01/07/24 23:00 77 19 138/77 98 01/07/24 22:30 77 14 96 01/07/24 22:30 150/75 H 01/07/24 22:30 150/75 H 01/07/24 22:00 157/76 H 01/07/24 21:45 79 17 98 01/07/24 21:30 78 15 98 01/07/24 21:30 159/79 H 01/07/24 21:30 159/79 H 01/07/24 21:30 159/79 H 01/07/24 21:30 159/79 H 01/07/24 21:26 156/74 H O2 Del Method 01/08/24 08:07 Room Air 01/08/24 03:03 Room Air 01/07/24 23:59 01/07/24 23:55 Room Air 01/07/24 23:51 Room Air 01/07/24 23:40 Room Air 01/07/24 23:00 Room Air 01/07/24 22:30 01/07/24 22:30 01/07/24 22:30 01/07/24 22:00 01/07/24 21:45 Room Air 01/07/24 21:30 01/07/24 21:30 01/07/24 21:30 01/07/24 21:30 01/07/24 21:30 01/07/24 21:26 Laboratory Results Cardiac Enzymes 01/07/24 01/07/24 01/08/24 Range/Units 19:54 23:05 05:25 AST 30 (13-39) U/L Troponin I High Sens 57.1 H* 61.9 H* 67.0 H* (0-20) pg/ml Coagulation 01/07/24 Range/Units 19:54 PT 10.7 (9.0-12.0) Seconds APTT 28 (21-31) Seconds Lipids 01/08/24 Range/Units 05:25 Triglycerides 46 (0-150) mg/dl Cholesterol 91 (0-200) mg/dl HDL Cholesterol 29 mg/dl Cholesterol/HDL Ratio 3.1 (0-5) CBC 01/07/24 01/08/24 Range/Units 19:54 05:25 WBC 3.21 L 3.09 L (4.8-10.8) K/ul RBC 4.37 L 4.30 L (4.70-6.10) M/uL Hgb 11.7 L 11.6 L (14.0-18.0) g/dl Hct 37.2 L 35.6 L (42.0-52.0) % Plt Count 294 288 (130-400) K/uL Neut # (Auto) 1.89 1.70 (1.40-6.50) K/uL Lymph # (Auto) 0.78 L 0.84 L (1.20-3.40) K/uL [place] # (Auto) 0.44 0.44 (0.11-0.59) K/uL Eos # (Auto) 0.08 0.08 (0.00-0.50) K/uL Baso # (Auto) 0.01 0.02 (0.00-0.20) K/uL Comprehensive Metabolic Panel 01/07/24 01/08/24 Range/Units 19:54 05:25 Sodium 134 L 135 L (136-145) mmol/L Potassium 3.9 3.9 (3.5-5.1) mmol/L Chloride 98 100 (98-107) mmol/L Carbon Dioxide 28 27 (21-32) mmol/L BUN 20 18 (6-23) mg/dl Creatinine 1.35 1.26 (0.6-1.4) mg/dl Glucose 81 94 (70-99(Fasting)) mg/dl Calcium 10.0 9.3 (8.6-10.3) mg/dl AST 30 (13-39) U/L ALT 19 (7-52) U/L Alkaline Phosphatase 55 (34-104) U/L Total Protein 7.6 (6.0-8.3) gm/dl Albumin 4.7 (3.4-5.0) gm/dl Intake and Output 01/07/24 01/08/24 01/08/24 22:59 06:59 14:59 Intake Total 319.7 / 319.7 13.333 / 13.333 Output Total 325 / 325 Balance -5.3 / -5.3 13.333 / 13.333 Intake: IV 319.7 / 319.7 13.333 / 13.333 Heparin Sodium/Dextrose 25,000 154.7 / 154.7 13.333 / 13.333 units In 500 ml @ 1,300 UNITS/ HR 26 mls/hr IV .[id number] KATHYA Rx #:[id number] Magnesium Sulfate / D5w 1 gm In 165 / 165 100 ml @ 50 mls/hr IV Q2H KATHYA Rx#:[id number] Output: Urine 325 / 325 Other: Other Intake Source NPO # Unmeasured Voids 1 Weight 88.6 kg 83.5 kg Weight Measurement Method Built in Bedscale Standing Scale Diagnostic Findings Chest x-ray without acute process. Chest CT negative for PE, revealing emphysema, coronary and aortic atherosclerosis EKG on presentation revealed sinus rhythm at 84 bpm with a prolonged first- degree AV block, right bundle branch block. EKG this morning reveals sinus rhythm with Mobitz type I second degree AV block, right bundle branch block. Telemetry: Sinus rhythm with a prolonged first-degree AV block with winky block, short episodes of 2-1 AV block.
--- NOTE | 2024-01-08 10:10 | Pre Anesthesia Assessment ---
Date of Service January 08, 2024 Pre Sedation Assessment Vital Signs Temp Pulse Pulse Resp BP BP Pulse Ox 01/08/24 09:49 71 14 126/68 92 01/08/24 08:07 36.8 C 56 L 17 125/67 95 01/08/24 03:03 36.5 C 63 16 123/65 96 01/07/24 23:59 77 01/07/24 23:55 01/07/24 23:51 36.5 C 75 18 132/73 94 01/07/24 23:40 36.5 C 75 18 132/73 94 01/07/24 23:00 77 19 138/77 98 01/07/24 22:30 77 14 96 01/07/24 22:30 150/75 H 01/07/24 22:30 150/75 H 01/07/24 22:00 157/76 H 01/07/24 21:45 79 17 98 01/07/24 21:30 78 15 98 01/07/24 21:30 159/79 H 01/07/24 21:30 159/79 H 01/07/24 21:30 159/79 H 01/07/24 21:30 159/79 H 01/07/24 21:26 156/74 H 01/07/24 20:30 137/81 01/07/24 20:27 79 17 97 01/07/24 20:06 82 14 97 01/07/24 19:48 92 H 20 94 01/07/24 19:31 99 01/07/24 19:30 135/78 01/07/24 19:30 135/78 01/07/24 19:27 82 15 97 01/07/24 19:19 133/80 01/07/24 19:18 83 17 97 01/07/24 19:16 84 01/07/24 19:13 18 99 01/07/24 19:13 99 01/07/24 19:13 36.7 C 84 18 133/80 97 O2 Del Method O2 Flow Rate 01/08/24 09:49 Room Air 01/08/24 08:07 Room Air 01/08/24 03:03 Room Air 01/07/24 23:59 01/07/24 23:55 Room Air 01/07/24 23:51 Room Air 01/07/24 23:40 Room Air 01/07/24 23:00 Room Air 01/07/24 22:30 01/07/24 22:30 01/07/24 22:30 01/07/24 22:00 01/07/24 21:45 Room Air 01/07/24 21:30 01/07/24 21:30 01/07/24 21:30 01/07/24 21:30 01/07/24 21:30 01/07/24 21:26 01/07/24 20:30 01/07/24 20:27 Room Air 01/07/24 20:06 Room Air 01/07/24 19:48 Room Air 01/07/24 19:31 Room Air 01/07/24 19:30 01/07/24 19:30 01/07/24 19:27 01/07/24 19:19 01/07/24 19:18 01/07/24 19:16 01/07/24 19:13 Room Air 01/07/24 19:13 Room Air 0 01/07/24 19:13 Room Air Cardiovascular RRR, no murmur, no edema Respiratory normal respiratory effort, lungs clear to auscultation Pre-Sedation Airway Assessment Smoking Status: Never smoker Short, Thick Neck: No Thyromental Distance: > or= 3.5 Finger Breadths Oral Cavity: + WNL Mallampati Class: III ASA: ASA3 NPO Status Date of Last Intake of Fluids: 01/07/24 Date of Last Intake of Solid Food: 01/07/24 Procedure Planning Contraindications for Sedation: none Current Medications Reviewed: Yes Notes The planned sedation has been discussed with the patient. Informed Consent was obtained. I have identified the patient, determined the appropriateness of sedation and have assessed the patient immediately prior to the procedure. All medicine(s) and interventions are by my order.
[2024-01-08] MEDS: niCARdipine HCL INJ 2.5 MG/ML 10 ML AMP ONE (10:48)
--- NOTE | 2024-01-08 11:14 | Cardiac Catheterization ---
Cardiac Cath Procedure Brief Procedure Date January 08, 2024 Pre-Procedure Diagnosis Pre-Procedure Diagnosis: Non STEMI and Angina AUC Score AUC Score: 9 Post-Procedure Diagnosis Post-Procedure Diagnosis: Severe CAD (Right coronary artery) Procedure(s) Performed Procedure(s) Performed: Coronary Angiography and Left Heart Cath Surgical Instrument Mechanic Ming Iglesias MD Consultant Electronics(s) Tasha Meade Estimated Blood Loss Estimated Blood Loss: <15cc Medication(s) Medication(s): Fentanyl (12.5 mcg IV), Heparin (2500 units IV), Lidocaine 1% (Lo kerline infiltration access site), Nicardipine (250 mcg intra-arterial after arterial sheath insertion) and Versed (1 mg IV) Preliminary Findings Impression: Culprit lesion mid right coronary artery, 70-80% in a long segment of disease. Patent stent in mid to distal left anterior descending with 50% proximal edge stenosis. Diffuse luminal irregularities all vasculature Fluids (cc crystalloids) Fluids (cc crystalloids): 137 Anesthesia Start time: 1043, stop: 1100 Procedural Complication(s) None
--- NOTE | 2024-01-08 11:19 | Cardiac Catheterization ---
Cardiac Cath Procedure Full Procedure Date January 08, 2024 Pre-Procedure Diagnosis Pre-Procedure Diagnosis: Non STEMI and Angina AUC Score AUC Score: 9 Post-Procedure Diagnosis Post-Procedure Diagnosis: Severe CAD (Right coronary artery) Procedure(s) Performed Procedure(s) Performed: Coronary Angiography and Left Heart Cath Pin Drafter Operator Ming Iglesias MD Internal Control Analyst(s) Tasha Meade Estimated Blood Loss Estimated Blood Loss: <15cc Medication(s) Medication(s): Fentanyl (12.5 mcg IV), Heparin (2500 units IV), Lidocaine 1% (Local infiltration access site), Nicardipine (250 mcg intra-arterial after arterial sheath insertion) and Versed (1 mg IV) Summary of Findings Impression: Culprit lesion mid right coronary artery, 70-80% in a long segment of disease. Patent stent in mid to distal left anterior descending with 50% proximal edge stenosis. Diffuse luminal irregularities all vasculature Mildly elevated left end-diastolic pressure Procedure: Left heart catheterization, coronary angiography via right radial access without difficulty Catheters: 6 [place] long glide sheath, 5 [place], 5 [place] straight pigtail Complications none Coronary angiography: Right dominant anatomy Left main: Long vessel normal caliber, trifurcating to the left anterior descending large ramus intermedius and the left circumflex. Mild luminal regularities and calcium in the left main Left anterior descending: Type III in distribution. It gives rise to a large trifurcating diagonal in its midportion and courses to beyond the apex. Within the left anterior descending there is moderate diffuse atherosclerosis and ectasia. There is a 50% narrowing in the left anterior sending proximal to the diagonal branch. The origin of the diagonal branch is narrowed by 50%. There is a long area of stenting involving the mid and apical portion of the left anterior descending with patent stent there is a 50% narrowing at the proximal edge. Ramus intermedius: Large caliber bifurcating vessel with mild luminal regularities Left circumflex: Moderate large caliber consisting of a large obtuse marginal and a moderate caliber posterolateral branch. There are diffuse moderate irregularities. Right coronary artery: Dominant vessel modest in caliber with diffuse disease. It courses to give rise to a long posterior descending artery and a small posterior ventricular branch. There is a 50% narrowing at the end of its proximal turn and a discrete 80% stenosis after a right ventricular branch in it s midportion. The distal vessel has moderate diffuse disease of 30 to 40%. Hemodynamics Rest Ao:: 119/69/89 Final Ao: 108/64/84 LV: 102/16/21 Recommendations Recommendations: PCI without planned CABG Radiation Exposure (mGy) 881 Contrast (mls) 55 Fluids (cc crystalloids) Fluids (cc crystalloids): 137 Anesthesia Start time: 1043, stop: 1100 Procedural Complication(s) None Disposition PCI same setting I attest to the content of the Intraoperative Record and any orders documented therein. Any exceptions are noted below. 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 Clinical evaluation leading to the procedure 73-year-old male with multiple cardiovascular risk factors, known coronary disease with prior LAD stent presenting with rest chest pain, elevated troponin CAD Presenation: Non STEMI Anginal Classification: CCS IV Heart Failure: No Cardiogenic Shock within 24 Hours: No Cardiac Arrest within 24 Hours: No Imaging Studies Past 6 Months: Yes Stress Studies Past 6 Months: No Standard Exercise Test: No Stress Echocardiogram: No Stress Testing w/SPECT MPI: No Cardiac CTA: No STEMI OR Non-STEMI Symptom Onset Date: 01/07/24 Symptom Onset Time: 15:00 Coronary Anatomy Dominant: Right Left Main (% Stenosis): Distal (Mild irregularities and calcification) LAD (% Stenosis): Mid (50) D1 (% Stenosis): Ostial (50) Circumflex (% Stenosis): Mid (Moderate Irregularity) OM1 (% Stenosis): Normal L PL1 (% Stenosis): Normal RCA (% Stenosis): Proximal (50) and Mid (80) R PDA (% Stenosis): Mid (Moderate irregularities of 30 to 40%) R PL1 (% Stenosis): Normal Left Ventricular Angiography EF (%): N/A Diagnostic Physicians Name: Ming Iglesias MD Status: Urgent Closure Device Percutaneous Entry Location: Radial Closure Device: Radial Band Recommendations: PCI without planned CABG
[2024-01-08] MEDS: HEPARIN (PORCINE) 1000 UNIT/ML 10 ML (CATH LAB USE ONLY) ONE (11:47)
[2024-01-08] MEDS: MIDAZOLAM HCL 1 MG/ML 2ML VIAL ONE (11:48)
[2024-01-08] MEDS: OPTIRAY 350 ONE (11:51)
[2024-01-08] MEDS: fentaNYL citrate PF 100 MCG/2 ML VIAL ONE (11:51)
[2024-01-08] MEDS: NITROGLYCERIN/D5W 100MCG/ML 20ML SYR ONE (11:52)
--- NOTE | 2024-01-08 11:57 | Post Anesthesia Assessment ---
Date of Service January 08, 2024 Post Sedation Assessment Vital Signs Temp Pulse Pulse Resp BP BP Pulse Ox 01/08/24 09:49 71 14 126/68 92 01/08/24 08:07 98.2 F 56 L 17 125/67 95 01/08/24 03:03 97.7 F 63 16 123/65 96 01/07/24 23:59 77 01/07/24 23:55 01/07/24 23:51 97.7 F 75 18 132/73 94 01/07/24 23:40 97.7 F 75 18 132/73 94 01/07/24 23:00 77 19 138/77 98 01/07/24 22:30 77 14 96 01/07/24 22:30 150/75 H 01/07/24 22:30 150/75 H 01/07/24 22:00 157/76 H 01/07/24 21:45 79 17 98 01/07/24 21:30 78 15 98 01/07/24 21:30 159/79 H 01/07/24 21:30 159/79 H 01/07/24 21:30 159/79 H 01/07/24 21:30 159/79 H 01/07/24 21:26 156/74 H 01/07/24 20:30 137/81 01/07/24 20:27 79 17 97 01/07/24 20:06 82 14 97 01/07/24 19:48 92 H 20 94 01/07/24 19:31 99 01/07/24 19:30 135/78 01/07/24 19:30 135/78 01/07/24 19:27 82 15 97 01/07/24 19:19 133/80 01/07/24 19:18 83 17 97 01/07/24 19:16 84 01/07/24 19:13 18 99 01/07/24 19:13 99 01/07/24 19:13 98.1 F 84 18 133/80 97 O2 Del Method O2 Flow Rate 01/08/24 09:49 Room Air 01/08/24 08:07 Room Air 01/08/24 03:03 Room Air 01/07/24 23:59 01/07/24 23:55 Room Air 01/07/24 23:51 Room Air 01/07/24 23:40 Room Air 01/07/24 23:00 Room Air 01/07/24 22:30 01/07/24 22:30 01/07/24 22:30 01/07/24 22:00 01/07/24 21:45 Room Air 01/07/24 21:30 01/07/24 21:30 01/07/24 21:30 01/07/24 21:30 01/07/24 21:30 01/07/24 21:26 01/07/24 20:30 01/07/24 20:27 Room Air 01/07/24 20:06 Room Air 01/07/24 19:48 Room Air 01/07/24 19:31 Room Air 01/07/24 19:30 01/07/24 19:30 01/07/24 19:27 01/07/24 19:19 01/07/24 19:18 01/07/24 19:16 01/07/24 19:13 Room Air 01/07/24 19:13 Room Air 0 01/07/24 19:13 Room Air Recovery Score Activity: Moves 4 extremities Respiration: Deep Breath/Cough Circulation: +/-20% PreAnes Value Consciousness: Fully Awake Oxygen Saturation: O2 needed for >90% Discharge Sedation Level of Care: Fast Track Phase II Post Sedation Plan On clinical assessment, the patient appears to have tolerated the sedation without complications. Patient is recovering as anticipated. Patient will continue to be monitored by nursing and may be discharged when sedation discharge criteria are met per below protocol. Upon Completions of procedure up to 15 minutes continue every 5 minute vital signs and the P.A.R. score; then discharge to a Phase I or Fast Track to Phase II per the following guidelines: * Discharge Patient to appropriate Phase II area if PAR is 8 or greater or return to pre- procedure baseline. The post - procedure orders will be as directed. * If PAR score is less than 8 or not return to pre-procedure baseline then patient will follow Phase I monitoring till PAR is reached for Phase II. The Phase I may be done in procedure room or may call to secure a Phase I area. * If naloxone or flumazenil are used for reversal, hold in Phase I for continued monitoring from when last reversal dose was given for a minimum of 60 minutes or longer pending the nurse and/or physician discretion of patient condition before discharge to Phase II. Please call the Sedation Physician to re-evaluate and complete post-note for discharge to Phase II area. Do NOT discharge from procedure sedation or Phase 1 until post- sedation evaluation note is complete by procedure /sedation MD Sedation Discharge Instructions to be given to the patient at discharge to home.
--- NOTE | 2024-01-08 12:07 | Cardiac Catheterization ---
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 Clinical evaluation leading to the procedure CAD Presenation: Non STEMI Diagnostic Physicians Name: Ty Rob MD Closure Device Recommendations: PCI without planned CABG Cardiac Cath Procedure Full Procedure Date January 08, 2024 Pre-Procedure Diagnosis Pre-Procedure Diagnosis: Non STEMI AUC Score AUC Score: 8 Post-Procedure Diagnosis Post-Procedure Diagnosis: Severe CAD (Right coronary artery) and Successful PCI Procedure(s) Performed Procedure(s) Performed: Drug Eluting Stent Bite Block Maker Ty Rob MD Cupola Worker(s) Willis Estimated Blood Loss Estimated Blood Loss: <15cc Medication(s) Medication(s): Clopidogrel, Fentanyl (12.5 mcg IV), Heparin (2500 units IV), Lidocaine 1% (Local infiltration access site), Nicardipine (250 mcg intra- arterial after arterial sheath insertion), Nitroglycerin and Versed (1 mg IV) Summary of Findings Indication: NSTEMI Access: 6 Fr right radial artery Catheters: JR4 guide Findings: For full details of patient's coronary angiography please see cath report dictated by Dr. Iglesias. Briefly, patient found to have severe mid RCA disease. Decision to proceed with PCI. -- PCI -- Antithrombotic therapy: Heparin, clopidogrel Procedure: RCA cannulated with JR4 guide Pre-procedure flow DARIO 3 [place] Sorter 50 wire passed across lesion into distal vessel Mid RCA lesion predilated with 2.0 compliant balloon Dilated lesion stented with 2.5 x 30 mm [place] drug-eluting stent IC vasodilators administered Residual stenosis at distal end of stent Second CHANDA (2.5 x 8 mm [place]) overlapped with distal aspect of initial stent Stents post-dilated with 3.0 noncompliant balloon IC vasodilators administered for spasm Post procedure DARIO 3 flow, stents well expanded with minimal residual stenosis and no apparent cardiac complications. Arterial Closure: TR band Summary: 1. Successful PCI of mid RCA with 2 overlapping drug-eluting stents (2.5 x 30, 2.5 x 8 mm Vasyl; postdilated with 3.0 NC). 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 Any exceptions are noted below. [facility] Card Cath Procedure Codes Moderate Sedation Procedure 1: Sedation/Anesthesia: 20922 Mod Sedation by the same physician; Ea [id number] Minutes Stenting Procedure 1: Cardiovascular Stent Procedures: 00427 Perc transcatheter placement of intracoronary stent(s), with ang PG Care Time/CCT Total # of Minutes Spent Total Time Spent with Patient: Total time spent is greater than 50% in coordination of care (as documented) at patient's floor/unit and/or counseling patient:
[2024-01-08] MEDS: CLOPIDOGREL BISULFATE 300 MG TAB ONE (12:28)
--- NOTE | 2024-01-08 14:04 | Communication Note ---
Date of Service: January 08, 2024 Patient seen both prior to and after cardiac catheterization High-grade mid right coronary artery stenosis identified with patent LAD stent on cardiac catheterization. Patient underwent drug-eluting stent to right coronary successfully Clopidogrel added to regimen. Patient with marked first-degree AV block and right bundle branch block. Would avoid beta-blockers. Watch closely for further decline in conduction. Transient 2-1 AV block after beta-barb last evening. Vagal event in precath holding area Maintain telemetry overnight
--- NOTE | 2024-01-08 14:53 | Hospitalist Progress Note ---
Date of Service January 08, 2024 Assessment & Plan (1) NSTEMI (non-ST elevated myocardial infarction): Plan: NSTEMI H/O CAD S/P stent H/O PVD s/p Successful PCI of mid RCA with 2 overlapping drug-eluting stents --Troponins elevated --ECHO: Left ventricle is normal in size. Moderate concentric LVH. Left ventricle wall motion is normal. EF 60 to 65%. Aortic valve sclerosis moderate, without significant stenosis. Attic valve opening mildly reduced. Tr nadir aortic regurgitation. No atrial septal defect. Possible small patent foramina well --CTA:No pulmonary embolus. IV heparin discontinued Continue aspirin, Lipitor Started on Plavix 75 mg Appreciate cardiology input Dysphagia Aspiration precautions Speech therapy consulted Mobitz type I AV block Avoid AV zuleika blocking agents as able Monitor Hypomagnesemia Replete electrolytes as needed Monitor Hypertension Continue amlodipine, isosorbide Also on tamsulosin Monitor BP Hyperlipidemia Continue Lipitor COPD No signs of exacerbation Saturating well on room air DM II HbA1c 7.0 Continue insulin while hospitalized Monitor BGs SLE on hydroxychloroquine Chronic anemia Hb at baseline Monitor Past tobacco abuse As per record DVT Px: Heparin ggt SCDs CODE STATUS Full code Admission and Anticipated Discharge Date Admission Date: January 07, 2024 Subjective Patient is seen and examined at bedside States having retrosternal chest pain, mildly better when compared to yesterday Also reports intermittent dizziness Reports chronic neuropathy No other complaints today Discussed with cardiology today Patient had cardiac catheterization earlier today Review of Systems Review of Systems: All systems reviewed & are unremarkable except as noted in Subjective Physical Exam Physical Exam: Physical Exam: Vitals signs as noted above General Appearance:Moderately built and nourished, no apparent distress Head: normocephalic, Atraumatic Eyes: normal inspection, EOMI Neck: supple, Trachea midline Respiratory/Chest: Normal breath sounds, CTA, No accessory muscle use Cardiovascular: S1, S2, + murmur Abdomen/GI:Soft, Non tender, Bowel sounds present Extremities/Musculoskeletal:normal inspection, no edema Neurologic/Psych:AAOX3, grossly no focal neurological deficits Skin: normal color, warm Results & Data Results & Data Vital Signs (Past 12 Hours) Vital Signs Temp Pulse Resp BP Pulse Ox O2 Del Method 01/08/24 13:38 62 16 108/62 95 Room Air 01/08/24 12:15 72 16 118/67 92 Room Air 01/08/24 12:00 74 14 112/64 92 Room Air 01/08/24 11:57 74 14 96/62 L 92 Room Air 01/08/24 09:49 71 14 126/68 92 Room Air 01/08/24 08:07 36.8 C 56 L 17 125/67 95 Room Air 01/08/24 03:03 36.5 C 63 16 123/65 96 Room Air Laboratory Results Short CBC 01/07/24 01/08/24 Range/Units 19:54 05:25 WBC 3.21 L 3.09 L (4.8-10.8) K/ul Hgb 11.7 L 11.6 L (14.0-18.0) g/dl Hct 37.2 L 35.6 L (42.0-52.0) % Plt Count 294 288 (130-400) K/uL BMP 01/07/24 01/08/24 19:54 05:25 Sodium 134 L 135 L Potassium 3.9 3.9 Chloride 98 100 Carbon Dioxide 28 27 BUN 20 18 Creatinine 1.35 1.26 Glucose 81 94 Calcium 10.0 9.3 Liver Function 01/07/24 Range/Units 19:54 Total Bilirubin 0.5 (0.2-1.0) mg/dl AST 30 (13-39) U/L ALT 19 (7-52) U/L Alkaline Phosphatase 55 (34-104) U/L Albumin 4.7 (3.4-5.0) gm/dl
[2024-01-08 15:06] VITALS: RESP 18
--- NOTE | 2024-01-08 15:26 | Electrocardiogram Report ---
Test Reason : Blood Pressure : */* mmHG Vent. Rate : 84 BPM Atrial Rate : 84 BPM P-R Int : 330 ms QRS Dur : 144 ms QT Int : 404 ms P-R-T Axes : 62 42 45 degrees QTcB Int : 477 ms Sinus rhythm with 1st degree A-V block Right bundle branch block Abnormal ECG No previous ECGs available Confirmed by Jero Zuñiga ([id number]) on 01/08/2024 3:26:05 PM Referred By: Confirmed By: Jero Zuñiga
--- NOTE | 2024-01-08 15:27 | Electrocardiogram Report ---
Test Reason : Blood Pressure : */* mmHG Vent. Rate : 55 BPM Atrial Rate : 75 BPM P-R Int : * ms QRS Dur : 154 ms QT Int : 430 ms P-R-T Axes : 77 50 55 degrees QTcB Int : 411 ms Sinus rhythm with 2nd degree A-V block (Mobitz I) Right bundle branch block Abnormal ECG When compared with ECG of 07-Jan-2024 19:16, (unconfirmed) Sinus rhythm is now with 2nd degree A-V block (Mobitz I) Vent. rate has decreased by 29 bpm QT has shortened Confirmed by Jero Zuñiga ([id number]) on 01/08/2024 3:27:06 PM Referred By: Lisbet LACEY Confirmed By: Jero Zuñiga
[2024-01-08] MEDS: TAMSULOSIN HCL 0.4 MG CAP PO SCH (20:04)
[2024-01-08] MEDS: ATORVASTATIN 40 MG TAB PO SCH (20:04)
[2024-01-09 06:50] LABS: Hematocrit (blood only) 33.4 % (42.0-52.0); Hemoglobin 10.8 g/dl (14.0-18.0); Mean Corpuscular Hemoglobin 26.9 pg (25.0-34.0); Mean Corpuscular Hgb Conc 32.3 g/dL (32.0-36.0); Mean Corpuscular Volume 83.3 fL (80.0-100.0); Mean Platelet Volume 11.1 fL (9.4-12.4); Platelet Count 295 K/uL (130-400); RDW Coefficient of Variation 15.2 % (11.5-14.5); RDW Standard Deviation 46.6 fL (36.4-46.3); Red Blood Count 4.01 M/uL (4.70-6.10)
[2024-01-09 07:24] LABS: BUN Creatinine Ratio 17.6 (10-20); Calcium 9.3 mg/dl (8.6-10.3); Creatinine Clr Calc Pharmacy 50.5 ml/min; Est GFR (African American) 59.8 ml/min; Est GFR (Non-African American) 51.6 ml/min; Magnesium 1.7 mg/dl (1.7-2.4)
[2024-01-09 07:25] VITALS: O2SAT 94
[2024-01-09] MEDS: CLOPIDOGREL BISULFATE 75 MG TAB PO SCH (08:02)
[2024-01-09 11:06] VITALS: BP 121/66; PULSE 68; TEMP 97.5
--- NOTE | 2024-01-09 11:30 | Cardiology Progress Note ---
Date of Service January 09, 2024 Assessment & Plan (1) Mobitz (type) I (Wenckebach's) atrioventricular block: (2) NSTEMI (non-ST elevated myocardial infarction): Plan CAD -s/p 2 overlapping CHANDA to mRCA 01/08/2024 -PCI unknown vessel 3 years ago Mobitz type I (wenkebach) HLD HTN T2 DM COPD SLE Chronic anemia BPH Latent TB -Patient initially presenting with ACS, underwent cardiac catheterization s/p CHANDA x2 to mRCA -Patient doing well, appears euvolemic on examination -Remains chest pain free -Mobitz type I during nighttime hours. Would benefit from sleep apnea testing as outpatient. -Metoprolol has been discontinued. Avoid AVN blockers for now. Case discussed with Dr. Ba. I spent a total of 30 minutes on the date of service in preparation, delivery, and documentation of the care provided to this patient, excluding any time spent in the performance of separately billed services. Feli Martinez PA-C Department of Cardiology, [facility] This chart was completed in part utilizing Speech Voice Recognition Software. Grammatical errors, random word insertions, pronoun errors, and incomplete sentences are an occasional consequence of this system due to software limitations, ambient noise, and hardware issues. Any formal questions or conc erns about the content, text, or information contained within the body of this dictation should be directly addressed to the provider for clarification. Admission and Anticipated Discharge Date Admission Date: January 07, 2024 Supervising Physician Co-Signing Physician Notes I have reviewed the advance practitioner's documentation, and I agree with, and take responsibility for the plan of care. I have personally performed a history and physical examination on the patient. I spent a total of 30 minutes on the date of service in preparation, delivery, and documentation of the care provided to this patient, excluding any time spent in the performance of separately billed service Patient doing well today. He denies chest pain, dyspnea, or syncope. On clinical exam is euvolemic. He is status post 2 overlapping drug-eluting stents to the mid right coronary artery. On admission there was bradycardia with Mobitz type I Wenckebach possibly related to RCA ischemia along with metoprolol. Agree with avoiding AV zuleika blocking agents for now. Overnight no significant issues on telemetry no high degree AV block or significant pauses. Patient remains chest pain-free. Patient can follow-up with cardiology as an outpatient. Would consider sleep study follow-up as an outpatient. Subjective Patient reports feeling well today Denies chest pain, shortness of breath, dizziness Resting comfortably laying flat in bed for examination Review of Systems Review of Systems: All systems reviewed & are unremarkable except as noted in HPI & below Physical Exam Constitutional: WD/WN, vitals as above Eyes: PERRL, conjunctivae normal, anicteric sclerae Respiratory: normal respiratory effort, lungs clear to auscultation Auscultation: no crackles, no rales and no wheezes Cardiovascular: RRR, no murmur, no edema Heart Sounds: normal S1 and normal S2; no murmur Vessels: no JVD Extremities: no edema Skin: no rashes, warm and dry Psychiatric: A+Ox3, euthymic affect Results & Data Vital Signs (Past 12 Hours) Vital Signs Temp Pulse Pulse Resp BP Pulse Ox O2 Del Method 01/09/24 11:05 36.4 C L 68 18 121/66 94 Room Air 01/09/24 08:39 73 01/09/24 07:24 36.8 C 71 18 125/69 94 Room Air 01/09/24 02:41 36.7 C 70 18 100/58 L 93 Room Air
--- NOTE | 2024-01-09 12:21 | Hospitalist Progress Note ---
Date of Service January 09, 2024 Assessment & Plan (1) NSTEMI (non-ST elevated myocardial infarction): Plan: NSTEMI H/O CAD S/P stent H/O PVD s/p Successful PCI of mid RCA with 2 overlapping drug-eluting stents --Troponins elevated --ECHO: Left ventricle is normal in size. Moderate concentric LVH. Left ventricle wall motion is normal. EF 60 to 65%. Aortic valve sclerosis moderate, without significant stenosis. Attic valve opening mildly reduced. Tr nadir aortic regurgitation. No atrial septal defect. Possible small patent foramina well --CTA:No pulmonary embolus. IV heparin discontinued Continue aspirin, Lipitor Started on Plavix 75 mg Appreciate cardiology input Needs follow-up with cardiology on discharge Dysphagia Aspiration precautions Speech therapy consulted Tolerating current diet Mobitz type I AV block Avoid AV zuleika blocking agents as able Monitor Hypomagnesemia Replete electrolytes as needed Monitor Hypertension Continue amlodipine, isosorbide Also on tamsulosin Monitor BP Hyperlipidemia Continue Lipitor COPD No signs of exacerbation Saturating well on room air DM II HbA1c 7.0 Peripheral neuropathy Continue insulin while hospitalized Started on gabapentin 100 mg 3 times daily Monitor BGs SLE on hydroxychloroquine Chronic anemia Hb at baseline Monitor Past tobacco abuse As per record DVT Px: Heparin ggt--discontinued SCDs CODE STATUS Full code [facility]position [facility] Admission and Anticipated Discharge Date Admission Date: January 07, 2024 Subjective Patient is seen and examined at bedside States feeling a lot better today Denies any chest pain, dyspnea, nausea, vomiting, abdominal pain Reports chronic neuropathic pain Review of Systems Review of Systems: All systems reviewed & are unremarkable except as noted in Subjective Physical Exam Physical Exam: Physical Exam: Vitals signs as noted above General Appearance:Moderately built and nourished, no apparent distress Head: normocephalic, Atraumatic Eyes: normal inspection, EOMI Neck: supple, Trachea midline Respiratory/Chest: Normal breath sounds, CTA, No accessory muscle use Cardiovascular: S1, S2, + murmur Abdomen/GI:Soft, Non tender, Bowel sounds present Extremities/Musculoskeletal:normal inspection, no edema Neurologic/Psych:AAOX3, grossly no focal neurological deficits Skin: normal color, warm Results & Data Results & Data Vital Signs (Past 12 Hours) Vital Signs Temp Pulse Pulse Resp BP Pulse Ox O2 Del Method 01/09/24 11:05 36.4 C L 68 18 121/66 94 Room Air 01/09/24 08:39 73 01/09/24 07:24 36.8 C 71 18 125/69 94 Room Air 01/09/24 02:41 36.7 C 70 18 100/58 L 93 Room Air
--- NOTE | 2024-01-09 13:47 | Discharge Summary ---
Date of Service January 09, 2024 Admission HPI Per Admitting Provider History obtained from patient and records. Medical history significant for CAD status post stent, PVD, hypertension, hyperlipidemia, COPD, DM2 on oral medications, SLE, chronic anemia (baseline hemoglobin of 12), BPH, latent TB as per records, past tobacco abuse. Patient experienced pressure-like left-sided chest pain this afternoon while lying down in bed. Some shortness of breath. No cough symptoms. Similar to heart attack about 15 years ago which led to stent placement at the hospital in [place], [place]. Patient compliant with home medications. Discomfort relieved by aspirin and nitroglycerin administration at correctional facility. 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 Admission Exam Per Admitting Provider GENERAL: Comfortable, pleasant, no respiratory distress SKIN: Normal color, warm HEENT: [place] palpebral conjunctivae, no ptosis, dry buccal mucosa NECK : Supple, no tenderness CHEST : CTA, no tenderness HEART : RRR, systolic murmur ABDOMEN: Some distention, nontender EXTREMITIES : No LE swelling/tenderness, no other conspicuous deformities noted NEUROLOGIC : Coherent, no facial asymmetry, no other gross focality Principal Diagnosis Non-ST segment elevation myocardial infarction Dysphagia Mobitz type I AV block Peripheral neuropathy Discharge Data Allergies Allergy/AdvReac Type Severity Reaction Status Date / Time metoprolol [From Lopressor] AdvReac Intermediate 2 AVB Verified 01/08/24 06:37 SKIP Inhibitors AdvReac Unknown Verified 01/07/24 23:04 Consultations 01/07/24 22:29 ED Decision to Admit Stat 01/08/24 06:36 Consult Cardiology Routine Procedures Performed Operation Date: 01/08/24 10:00 Actual Procedures p Cineradiography w/Routine Exam - Ming Iglesias MD s Cath, Left with Cors and Vent - Ming Iglesias MD s Drug Eluting Stent SGl Vessel - Ty Rob MD Ordered Studies 01/07/24 20:36 CT for pulmonary embolism PE [CT angio chest PE protocol] Stat 01/08/24 09:58 CL Cath Imgs for PACS use only Routine Laboratory Results WBC 3.40 K/ul (4.8-10.8) L 01/09/24 05:57 RBC 4.01 M/uL (4.70-6.10) L 01/09/24 05:57 Hgb 10.8 g/dl (14.0-18.0) L 01/09/24 05:57 Hct 33.4 % (42.0-52.0) L 01/09/24 05:57 MCV 83.3 fL (80.0-100.0) 01/09/24 05:57 MCH 26.9 pg (25.0-34.0) 01/09/24 05:57 MCHC 32.3 g/dL (32.0-36.0) 01/09/24 05:57 RDW Std Deviation 46.6 fL (36.4-46.3) H 01/09/24 05:57 RDW Coeff of Cecilio 15.2 % (11.5-14.5) H 01/09/24 05:57 Plt Count 295 K/uL (130-400) 01/09/24 05:57 MPV 11.1 fL (9.4-12.4) 01/09/24 05:57 Immature Gran % (Auto) 0.3 % 01/08/24 05:25 Neut % (Auto) 55.1 % 01/08/24 05:25 Lymph % (Auto) 27.2 % 01/08/24 05:25 Jewell % (Auto) 14.2 % 01/08/24 05:25 Eos % (Auto) 2.6 % 01/08/24 05:25 Baso % (Auto) 0.6 % 01/08/24 05:25 Neut # (Auto) 1.70 K/uL (1.40-6.50) 01/08/24 05:25 Lymph # (Auto) 0.84 K/uL (1.20-3.40) L 01/08/24 05:25 Jewell # (Auto) 0.44 K/uL (0.11-0.59) 01/08/24 05:25 Eos # (Auto) 0.08 K/uL (0.00-0.50) 01/08/24 05:25 Baso # (Auto) 0.02 K/uL (0.00-0.20) 01/08/24 05:25 Immature Gran # (Auto) 0.01 K/uL (0.01-0.20) 01/08/24 05:25 PT 10.7 Seconds (9.0-12.0) 01/07/24 19:54 INR 1.0 (0.9-1.1) 01/07/24 19:54 APTT 28 Seconds (21-31) 01/07/24 19:54 PTT Ratio 1.0 01/07/24 19:54 Activ Coag Time Kaolin 256 SECONDS (94-140) H 01/08/24 11:29 Heparin Anti-Xa, Unfract 0.72 IU/ml (0.3-0.7) H* 01/08/24 05:25 Sodium 134 mmol/L (136-145) L 01/09/24 05:57 Potassium 4.0 mmol/L (3.5-5.1) 01/09/24 05:57 Chloride 99 mmol/L (98-107) 01/09/24 05:57 Carbon Dioxide 27 mmol/L (21-32) 01/09/24 05:57 Anion Gap 8 (3-11) 01/09/24 05:57 BUN 24 mg/dl (6-23) H 01/09/24 05:57 Creatinine 1.36 mg/dl (0.6-1.4) 01/09/24 05:57 Est Cr Clr Drug Dosing 50.5 ml/min 01/09/24 05:57 Est GFR ( Amer) 59.8 ml/min 01/09/24 05:57 Est GFR (Non-Af Amer) 51.6 ml/min 01/09/24 05:57 BUN/Creatinine Ratio 17.6 (10-20) 01/09/24 05:57 Glucose 91 mg/dl (70-99(Fasting)) 01/09/24 05:57 POC Glucose 100 mg/dl (70-99) H 01/09/24 11:04 Estimat Average Glucose 154 mg/dl 01/07/24 23:05 Hemoglobin A1c 7.0 % (4.5-5.6) H 01/07/24 23:05 Calcium 9.3 mg/dl (8.6-10.3) 01/09/24 05:57 Magnesium 1.7 mg/dl (1.7-2.4) 01/09/24 05:57 Total Bilirubin 0.5 mg/dl (0.2-1.0) 01/07/24 19:54 AST 30 U/L (13-39) 01/07/24 19:54 ALT 19 U/L (7-52) 01/07/24 19:54 Alkaline Phosphatase 55 U/L (34-104) 01/07/24 19:54 Troponin I High Sens 67.0 pg/ml (0-20) H* 01/08/24 05:25 Total Protein 7.6 gm/dl (6.0-8.3) 01/07/24 19:54 Albumin 4.7 gm/dl (3.4-5.0) 01/07/24 19:54 Globulin 2.9 gm/dl (2.5-4.0) 01/07/24 19:54 Albumin/Globulin Ratio 1.6 (0.9-2) 01/07/24 19:54 Triglycerides 46 mg/dl (0-150) 01/08/24 05:25 Cholesterol 91 mg/dl (0-200) 01/08/24 05:25 LDL Cholesterol, Calc 53 mg/dl 01/08/24 05:25 VLDL Cholesterol, Calc 9 mg/dl (0-30) 01/08/24 05:25 HDL Cholesterol 29 mg/dl 01/08/24 05:25 Cholesterol/HDL Ratio 3.1 (0-5) 01/08/24 05:25 Lipase 102 U/L (11-82) H 01/07/24 19:54 TSH 2.198 uIu/ml (0.300-4.500) 01/08/24 05:25 Nasal Screen MRSA (PCR) Negative (Negative) 01/08/24 08:37 Adenovirus (PCR) Not Detected (NotDetected) 01/07/24 20:40 B. pertussis DNA (PCR) Not Detected (NotDetected) 01/07/24 20:40 B.parapertussis DNA PCR Not Detected (NotDetected) 01/07/24 20:40 Lyme Disease Screen Negative (Negative) 01/08/24 14:28 C. pneumoniae DNA (PCR) Not Detected (NotDetected) 01/07/24 20:40 Coronavirus OC43 (PCR) Not Detected (NotDetected) 01/07/24 20:40 Coronavirus HKU1 (PCR) Not Detected (NotDetected) 01/07/24 20:40 Coronavirus 229E (PCR) Not Detected (NotDetected) 01/07/24 20:40 SARS-CoV-2 (PCR) Not Detected (NotDetected) 01/07/24 20:40 Coronavirus NL63 (PCR) Not Detected (NotDetected) 01/07/24 20:40 Human Metapneumovir PCR Not Detected (NotDetected) 01/07/24 20:40 Influenza Type A (PCR) Not Detected (NotDetected) 01/07/24 20:40 Influenza Type B (PCR) Not Detected (NotDetected) 01/07/24 20:40 M. pneumoniae (PCR) Not Detected (NotDetected) 01/07/24 20:40 Parainfluenza 1 (PCR) Not Detected (NotDetected) 01/07/24 20:40 Parainfluenza 2 (PCR) Not Detected (NotDetected) 01/07/24 20:40 Parainfluenza 3 (PCR) Not Detected (NotDetected) 01/07/24 20:40 Parainfluenza 4 (PCR) Not Detected (NotDetected) 01/07/24 20:40 RSV (PCR) Not Detected (NotDetected) 01/07/24 20:40 Entero/Rhino (PCR) Not Detected (NotDetected) 01/07/24 20:40 Impressions Chest X-Ray 01/07/24 19:19 XR chest 1V portable HISTORY: Chest pain, nonspecific COMPARISON: None. FINDINGS: The lungs are clear. Cardiac silhouette is normal in size. No pleural effusions. No pneumothorax. IMPRESSION: No acute process. ACT 112: Negative or not required by law. Electronically signed by: Osmar Hooks M.D. 01/08/2024 7:32 AM Chest CTA 01/07/24 20:36 Exam(s): CTA CHEST IV Amt: 118 cc opti 320 EXAM: CT Angiography Chest With Intravenous Contrast CLINICAL HISTORY: PE. TECHNIQUE: Axial computed tomographic angiography images of the chest with intravenous contrast. MIPS images were created and reviewed. CTDI is 22. 56 mGy and DLP is 768.09 mGy-cm. Automated exposure control was utilized for the study. A dose lowering technique was utilized adhering to the principles of ALARA. MIP reconstructed images were created and reviewed. COMPARISON: No relevant prior studies available. FINDINGS: Pulmonary arteries: Unremarkable. No pulmonary embolism. Aorta: Mild atherosclerosis. No thoracic aortic aneurysm. Lungs: Emphysema is noted. No mass. No consolidation. Pleural space: Unremarkable. No significant effusion. No pneumothorax. Heart: Coronary artery calcifications are present. No cardiomegaly. No significant pericardial effusion. No evidence of RV dysfunction. Bones/joints: There are degenerative changes of the spine. No acute fracture. Soft tissues: Unremarkable. Lymph nodes: Unremarkable. No enlarged lymph nodes. IMPRESSION: 1. No pulmonary embolus. 2. Emphysema is noted. Emphysema is an independent risk factor for lung cancer. Recommend evaluation for low dose lung cancer screening protocol. Electronically signed by: Aleja Bryant MD 01/07/24 23:16 PM Hospital Course (1) NSTEMI (non-ST elevated myocardial infarction): NSTEMI H/O CAD S/P stent H/O PVD s/p Successful PCI of mid RCA with 2 overlapping drug-eluting stents --Troponins elevated --ECHO: Left ventricle is normal in size. Moderate concentric LVH. Left ventricle wall motion is normal. EF 60 to 65%. Aortic valve sclerosis moderate, without significant stenosis. Attic valve opening mildly reduced. Trace aortic regurgitation. No atrial septal defect. Possible small patent foramina well --CTA:No pulmonary embolus. IV heparin discontinued Continue aspirin, Lipitor Started on Plavix 75 mg Appreciate cardiology input Needs follow-up with cardiology on discharge Dysphagia Aspiration precautions Speech therapy consulted Tolerating current diet Mobitz type I AV block Avoid AV zuleika blocking agents as able Monitor Hypomagnesemia Replete electrolytes as needed Monitor Hypertension Continue amlodipine, isosorbide Also on tamsulosin Monitor BP Hyperlipidemia Continue Lipitor COPD No signs of exacerbation Saturating well on room air DM II HbA1c 7.0 Peripheral neuropathy Continue insulin while hospitalized Started on gabapentin 100 mg 3 times daily Monitor BGs SLE on hydroxychloroquine Chronic anemia Hb at baseline Monitor Past tobacco abuse As per record DVT Px: Heparin ggt--discontinued SCDs CODE STATUS Full code Disposition [facility] facility as able Total Time Total Time Spent Total Time Spent (In Minutes): 52 minutes Discharge Plan Discharge Items Patient Disposition: [facility] Reason For Visit: ACS Discharge Diagnosis: Non-ST segment elevation myocardial infarction Dysphagia Mobitz type I AV block Peripheral neuropathy Activity: Per Instructions section Exercise/Sports: Wait until after follow-up appointment Non-emergency contact: Primary Care Provider and Mandarin Speaking Nanny Call non-emergency contact if: you have any medication questions, your symptoms worsen, your pain is concerning for you and you have a fever Follow-up/Referrals: Lisbet LACEY [Primary Care Provider] - Diet: Carb Consistent or DM2 and Heart Healthy Diet Texture: Dental soft (bite-sized) Addtl Attending Provider Instructions: Follow-up with your primary care physician at correctional facility in 1 week Follow-up with your high scaler Dr. Iglesias in 1 to 2 weeks as advised Consider following with your linux systems engineer for further evaluation of difficulty swallowing -- Your omeprazole is changed to Protonix as it could interact with clopidogrel. --Start taking clopidogrel 75 mg daily as recommended by your high scaler. -- Get sleep study to rule out sleep apnea as outpatient. Seek immediate medical attention if your symptoms reoccur or worsen Please take all medications as instructed on discharge list below. Please call if you have any questions or problems. You can reach a [facility] hospitalist on duty at [facility] 24 hours a day by calling [phone] Home Care: * Take your medications exactly as directed. Don't skip doses. * Remember that recovery after a heart attack takes time. Plan to rest for at lease 4-8 weeks while you recover. Then return to normal activity when your doctor says it's okay. * Ask your doctor about joining a heart rehabilitation program. * Tell your doctor if you are feeling depressed. Feelings of sadness are common after a heart attack, but it is important that you speak to someone if you are feeling overwhelmed by these feelings. * If you are having chest pain, call 911 for an ambulance. Do NOT drive yourself to the hospital. * Ask your family members to learn CPR. * Learn to take your own blood pressure and pulse. Keep a record of your results. Ask your doctor when you should seek emergency medical attention. He or she will tell you which blood pressure reading is dangerous. Lifestyle Changes: * Maintain a healthy weight. Get help to lose any extra pounds. * Cut back on salt. * Limit canned, dried, packaged, and fast foods. * Don't add salt to your food. * Season foods with herbs instead of salt when you cook. * Break the smoking habit. Enroll in a stop-smoking program to improve your chances of success. * Limit fatty foods. * Ask your doctor about having your lipid levels checked regularly. * Build up your activity according to your doctor's recommendation. * Ask your doctor when it's okay to resume sexual activity. * Tell your doctor about any erectile dysfunction (ED) medication you are taking. Some ED medications are not safe if you take certain heart medications. * Try to manage stress. Follow Up: It is important for you to keep your follow up appointments with your medical provider. Addtl Site Administrator Provider Instructions: ACTIVITY RECOMMENDATIONS: Excess manipulation of the wrist should be avoided for the next 24-48 hours. * No lifting over 2 pounds (approximately a 1/2 gallon of milk) with the utilized arm for 24 hours. * No strenuous activity such as bowling or tennis for 3 days. * Keep the site of the procedure covered with a bandage for 24 hours. *You may shower the day after the procedure. Do not take a tub bath or submerge the puncture site in water for the next 3 days. *Do not operate any motorized equipment for 3 days. SPECIAL CARE INSTRUCTIONS: The site may be slightly bruised and sore following your procedure. Should any of the following occur, contact the Dr. who performed your procedure. 1. Redness/inflammation, swelling, chills, or fever, or colored drainage at procedure site within 3-7 days after your procedure. 2. Coldness, discoloration, ongoing numbness, severe pain, or swelling. Expect mild tingling of hand and tenderness at the puncture site for up to three days. If this persists beyond three days, or other symptoms develop, notify the Dr. who performed your procedure. BLEEDING: If the procedure site on your wrist begins to bleed, do not panic 1. Place 1 or 2 fingers firmly just slightly above the insertion site to stop the bleeding. You may be able to feel your pulse as you hold pressure. 2. Lift your finger after 5 minutes to see if the bleeding has stopped. 3. Once the bleeding has stopped, gently wipe the wrist area clean with a bandage. * If the bleeding from your wrist does not stop after 10 minutes, or if there is a large amount of bleeding or spurting, call 911 (do not drive yourself to the hospital). SKIN IRRITATION: * You may experience some redness and/or swelling in the area where radiation was administered. If any skin irritation occurs, please contact your family physician. FOLLOW UP VISIT: Keep any scheduled doctor appointments. Pending Studies at Discharge: No Stand-Alone Forms: My [facility] Skilled Items Patient informed of condition?: Yes Discharge Level of Care: Other Communicable Disease: No Discharge Prognosis: Stable Lines: None Urinary Catheter: No Medications and DC Order Prescriptions: New clopidogrel 75 mg Tablet 75 mg PO QAM Qty: 30 1RF gabapentin 100 mg Capsule 100 mg PO TID Qty: 90 0RF pantoprazole [Protonix] 40 mg tablet,delayed release (DR/EC) 40 mg PO DAILY Qty: 30 0RF Continued metformin 500 mg Tablet 500 mg PO BID atorvastatin 80 mg Tablet 80 mg PO HS ammonium lactate 12 % Lotion 1 applic TOPICAL DAILY Rx Instructions: Apply to feet chlorthalidone 25 mg Tablet 25 mg PO DAILY aspirin [Aspir-Low] 81 mg Tablet,Delayed Release (Dr/Ec) 81 mg PO DAILY acetaminophen [Tylenol Extra Strength] 500 mg Tablet 1,000 mg PO BID PRN (Reason: Pain) isosorbide dinitrate 30 mg Tablet 30 mg PO BID Rx Instructions: allow nitrate-free interval of 12-14 hrs per 24-hr period tamsulosin 0.4 mg Capsule 0.4 mg PO HS amlodipine 10 mg Tablet 10 mg PO DAILY cyanocobalamin (vitamin B-12) 1,000 mcg/mL Solution 1,000 mcg IM .MONTH Rx Instructions: Day 17 of every month docusate sodium 100 mg Capsule 100 mg PO BID hydroxychloroquine [Plaquenil] 200 mg Tablet 200 mg PO BID albuterol sulfate 90 mcg/actuation Hfa Aerosol Inhaler 2 puff INHALATION QID PRN (Reason: Shortness Of Breath) duloxetine 60 mg Capsule,Delayed Release(Dr/Ec) 60 mg PO HS Discontinued omeprazole 20 mg Capsule,Delayed Release(Dr/Ec) 20 mg PO DAILY Discharge Orders: Discharge Order (Routine); Ordered 01/09/24 Ordered By: Willie Leung/Other Patient Handouts: Managing Type 2 Diabetes, Special Foot Care for Diabetes Admission Data Admit Date/Time: 01/07/24 22:53 Attending Provider: Willie Godoy Admit Provider: Oconer,Andrew N. Primary Care Provider: Lisbet LACEY Other Providers: Andrew Eckert; Tori Montenegro; Jose Arshad; Ming Iglesias; Yoandy Francisco; Virgil Croft; George Moreno; Lizbeth Lott; Darcy Segovia; Lori Ortiz; Tori Phillips; Jose Padron; Edgar Ba; Nesha Ocasio; Edith Mancilla; Ivy Sam; Josep Madrigal; Gerhard Newell; Feli Martinez
[2024-01-09] MEDS: GABAPENTIN 100 MG CAP PO SCH (14:00)
== END 2024-01-09 14:45 | DRG 322 ==
LOC: ED 19:10 → 2S 22:53 → SUATTDRO 22:53 → 2S 23:20